=== PATIENT | male | born 1960 | race Caucasian/White ===

== ENCOUNTER 2020-07-11 17:33 | Emergency (ER) | payer MEDICARE, OTHER, SELFPAY ==
--- NOTE | ~2020-07-11 | XR_ITS ---
XR knee RT min 4V DATE: 07/11/2020 18:16 INDICATION: Pain, erythema and warmth of right knee TECHNIQUE: 4 views COMPARISON: None FINDINGS: There is mild loss of height of medial compartment joint space. There is mild periarticular spurring at the patellofemoral joint. No fracture or dislocation, periosteal reaction or bone destruction. No radiopaque intra-articular lo ose body or chondrocalcinosis. IMPRESSION: Mild osteoarthritis of medial and patellofemoral compartments Reviewed, dictated and finalized at location A.
--- NOTE | 2020-07-11 17:35 | ED.GENADULT ---
HPI - General Adult General Chief complaint: Extremity Injury, Lower Stated complaint: Right knee Pain Time Seen by Provider: 07/11/20 17:35 Source: patient Mode of arrival: ambulatory Limitations: no limitations History of Present Illness HPI narrative: 59-year-old male patient presents to [facility] with complaints of right knee pain for the past 4 days. Patient states around Monday this week he was working on his knee and did have some kneepads but he was removing some tile. Patient states that the next day he noticed a little blister on the right knee and states he did pop it. Patient states that it is now red, warm and does have pain with movement of the knee. Denies any fevers, body aches or chills. Related Data Home Medications Medication Instructions Recorded Confirmed Immodium BID 07/11/20 allopurinol 07/11/20 esomeprazole magnesium mg 07/11/20 gabapentin 07/11/20 Allergies Allergy/AdvReac Type Severity Reaction Status Date / Time fluticasone Allergy Unknown Skin Verified 09/29/17 21:20 Reaction salmeterol [Advair Diskus] Allergy Unknown Skin Verified 09/29/17 21:20 Reaction Sulfa (Sulfonamide Allergy Unknown Skin Verified 09/29/17 21:20 Antibiotics) Reaction FLUTICASONE PROPIONATE Allergy Unknown RASH Uncoded 12/28/17 09:07 SALMETEROL XINAFOATE Allergy Unknown RASH Uncoded 12/28/17 09:07 Review of Systems Review of Systems: Narrative: CONSTITUTIONAL: Denies fever, chills, or sweats. EYES: Denies visual changes, redness, or discharge. ENT: Denies rhinorrhea, congestion, sore throat, or otalgia. CARDIOVASCULAR: Denies chest pain, palpitations, or edema. RESPIRATORY: Denies cough or dyspnea. GASTROINTESTINAL: Denies abdominal pain, nausea, vomiting, or diarrhea. GENITOURINARY: Denies dysuria or hematuria. SKIN: Denies rash or itching. MUSCULOSKELETAL: Denies back pain, joint pain, or myalgia. Positive right knee pain NEUROLOGIC: Denies headache, numbness, or weakness. PSYCHIATRIC: Denies anxiety or depression. 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, bilateral knee scopes, bilateral carpal tunnel release, left rotator cuff in 2016 and 2017 Family History Family History Mother Diabetes mellitus Father Acute myocardial infarction, Onset Age: 78 Family history of Alzheimer's disease Sibling Family history of malignant neoplasm Other Family history of arthritis Family history of cardiovascular disease Hypertension Social History Social History Smoking status: Never smoker Second hand tobacco smoke exposure: Yes Alcohol intake: current Comments At the time of my signature I agree with nursing past medical history, surgical, social, and family history. There is no relevant family history pertinent to the presenting complaint. Exam Narrative: Exam Narrative: GENERAL: Well-appearing, well-nourished, and in no acute distress. HEAD: Normocephalic, atraumatic. EYES: PERRLA and EOMI. ENT: Nares clear, no rhinorrhea or epistaxis. Mucous membranes moist. NECK: Supple. No lymphadenopathy CHEST: Clear to auscultation. No respiratory distress. HEART: Regular rate and rhythm. No murmur heard. Normal peripheral pulses. ABDOMEN: Soft, nontender, nondistended, normal active bowel sounds. EXTREMITIES: Patient is able to bear weight and ambulate without pain. No surfac
[2020-07-11 17:47] VITALS: BP 129/89; PULSE 81; RESP 16; TEMP 37.7; O2SAT 98
== END 2020-07-11 18:44 | disposition home or self-care (01) ==
PROVIDERS: Emergency Provider Nurse Practitioner Family; PCP Family Medicine
DX: L03.115 Cellulitis of right lower limb (principal); M19.90 Unspecified osteoarthritis, unspecified site; M48.02 Spinal stenosis, cervical region; K21.9 Gastro-esophageal reflux disease without esophagitis; G47.30 Sleep apnea, unspecified; G62.9 Polyneuropathy, unspecified; E78.00 Pure hypercholesterolemia, unspecified
CPT/HCPCS: 73564; 99213; G0463

== ENCOUNTER 2020-07-12 15:18 | Inpatient (IN) | payer MEDICARE, OTHER, SELFPAY ==
--- NOTE | ~2020-07-12 | US_ITS ---
EXAMINATION: US knee asp inj w image RT DATE: 07/13/2020 12:54 INDICATION: Right knee septic bursitis. TECHNIQUE: The procedure including the risks, benefits, and alternatives was discussed with the patie nt. Risks discussed included bleeding, infection and allergic reaction. The patient understood the ri sks and agreed to proceed. A timeout was performed to verify the patient's name, date of , an d procedure to be performed. The skin overlying the right kidney was prepped and draped in usual solomon rile fashion. Anesthetic was administered with 1% lidocaine subcutaneously. An 18 gauge needle was then advanced into the prepatellar bursal fluid collection under continuous sonographic guidance. 2 m m of fluid was aspirated and sent to the lab for studies as ordered by the referring physician includ ing Gram stain, cultures and crystal analysis. The entry site was cleaned and dressed. There were no immediate complications. FINDINGS: Ultrasound images demonstrate the needle in the 3.3 x 2.2 x 0.6 cm anechoic prepatellar flu id collection consistent with a prepatellar bursa. IMPRESSION: 1. Ultrasound-guided right prepatellar bursa aspiration yielding 2 mm of opaque silvestre purulent appeari ng fluid. Reviewed, dictated and finalized at location A. IMPRESSION: 1. Ultrasound-guided right prepatellar bursa aspiration yielding 2 mm of opaqu e silvestre purulent appearing fluid.
[2020-07-12 15:29] VITALS: BP 144/83; PULSE 102; RESP 20; TEMP 36.6; O2SAT 97
[2020-07-12 15:59] LABS: Basophils Percent Auto 0.1 % (0.2-1.2); Eosinophils Percent Auto 0.1 % (0-4.4); Hematocrit 45.9 % (42.0-52.0); Hemoglobin 15.5 g/dL (14.0-18.0); Immature Granulocyte Absolute 0.05 K/mm3 (0.00-0.031); Immature Granulocyte Percent A 0.3 % (0-0.5); Lymphocytes Absolute Auto 0.92 K/mm3 (0.9-3.2); Lymphocytes Percent Auto 5.8 % (18.3-44.2); Mean Corpuscular HGB Conc 33.8 g/dl (32-36); Mean Corpuscular Hemoglobin 29.8 pg (26-34); Mean Corpuscular Volume 88.3 fl (80-100); Mean Platelet Volume 10.3 fl (7.4-10.4); Monocytes Absolute Auto 1.2 K/mm3 (0.1-0.6); Monocytes Percent Auto 7.5 % (2.6-8.5); Neutrophils Absolute Auto 13.6 K/mm3 (1.3-6.7); Neutrophils Percent Auto 86.2 % (45.5-73.1); Platelet Count Result 147 k/mm3 (150-375); White Blood Count 15.7 K/mm3 (4.5-10.0)
--- NOTE | 2020-07-12 16:10 | PC.NURSE ---
patient to radiology via stretcher.
[2020-07-12 16:14] LABS: Alanine Aminotransferase 10 U/L (4-50); Albumin Level 4.4 g/dL (3.5-5.1); Alkaline Phosphatase 75 U/L (38-126); Anion Gap 10 mmol/L (8-16); Aspartate Amino Transferase 19 U/L (17-59); Bilirubin,Total 1.3 mg/dL (0.2-1.3); Blood Urea Nitrogen 13 mg/dL (9-20); CRP 8.7 mg/dL (<1.0); Calcium 9.7 mg/dL (8.4-10.2); Carbon Dioxide 25 mmol/L (22-30); Chloride 103 mmol/L (98-107); Estimated Glomerular Filt Rate > 60; Glucose 148 mg/dL (75-110); Potassium 3.8 mmol/L (3.4-5.0); Sodium 138 mmol/L (137-145)
[2020-07-12 16:50] LABS: Lactic Acid Reflex 0.8 mmol/L (0.7-2.1)
[2020-07-12] MEDS: KETOROLAC 30 MG/ML VIAL (*BKC) IV PUSH (16:52)
--- NOTE | 2020-07-12 17:24 | ED.LOWEXIN ---
HPI - Extremity Injury (Lower) General Chief Complaint: Extremity Injury, Lower Stated Complaint: R KNEE PAIN Time Seen by Provider: 07/12/20 15:32 Source: patient Mode of arrival: ambulatory Limitations: no limitations History of Present Illness HPI Narrative: This patient is a 59 year old male who presents for evaluation of right knee pain. He states he developed right knee blister on Monday. He reports after popping his blister he developed pain and swelling to his knee. He was evaluated at [facility] yesterday, and he was prescribed keflex. He has been on antibiotics for 24 hours, but he states he has developed worsening pain and swelling. He has pain and worsening swelling to his lower leg. He has severe pain with bearing weight. He denies fever or chills. Related Data Home Medications Medication Instructions Recorded Confirmed Immodium BID 07/11/20 esomeprazole magnesium mg DAILY 07/11/20 gabapentin 600 mg BID 07/11/20 allopurinol DAILY 07/12/20 rosuvastatin 10 mg PO HS 07/12/20 Allergies Allergy/AdvReac Type Severity Reaction Status Date / Time fluticasone Allergy Unknown Skin Verified 07/12/20 15:35 Reaction salmeterol [Advair Diskus] Allergy Unknown Skin Verified 07/12/20 15:35 Reaction Sulfa (Sulfonamide Allergy Unknown Skin Verified 07/12/20 15:35 Antibiotics) Reaction Review of Systems Review of Systems: All systems reviewed & are unremarkable except as noted in HPI and below Constitutional: Constitutional: Denies chills and Denies fever(s) Cardiovascular: Cardiovascular: Denies chest pain Respiratory: Respiratory: Denies cough and Denies dyspnea Gastrointestinal: Gastrointestinal: Reports nausea Musculoskeletal: Musculoskeletal: Reports joint swelling PMFSH Past Medical History Medical History Anxiety Arthritis Asthma Chronic back pain Stenosis of the cervical lumbar areas Depression GERD (gastroesophageal reflux disease) Hypercholesterolemia Kidney stones Musculoskeletal disorder Right Achilles tendon rupture Achilles tendon surgery 2017 Peripheral neuropathy Sleep apnea Surgical History Surgical History History of orthopedic surgery 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, bilateral knee scopes, bilateral carpal tunnel release, left rotator cuff in 2016 and 2017 Family History Family History Mother Diabetes mellitus Father Acute myocardial infarction, Onset Age: 78 Family history of Alzheimer's disease Sibling Family history of malignant neoplasm Other Family history of arthritis Family history of cardiovascular disease Hypertension Social History Social History Smoking status: Never smoker Second hand tobacco smoke exposure: Yes Alcohol intake: current Exam Const: General: no acute distress and alert Orientation/consciousness: patient oriented x3 HENMT: Head: normocephalic and atraumatic Ears: TM's normal bilaterally General nose exam: Normal external nose present Face and sinus: face symmetric Mouth: Yes Normal oral and palatal mucosa present, Yes lip normal, Yes oropharynx normal and Yes moist mucous membranes Teeth and gingiva: dentition normal Eyes: EOM: EOMs intact bilaterally Resp: Effort & Inspection: normal respiratory effort and no retractions Auscultation: clear to auscultation bilaterally Cardio: Rate: regular rate Rhythm: regular rhythm Heart sounds: Murmur heart sound present GI: GI Palp: No Soft to palpation, No Tenderness to palpation present (GI) and No Guarding due to palpation present (GI) Neuro: General: patient oriented x3 and moves all extremities Extrem: Other: right knee with open small wound mid patella with erythema right anterior knee down to mid
--- NOTE | 2020-07-12 17:58 | PC.NURSE ---
resting on stretcher. on BP and O2 monitors. 2nd IV antibiotic infusing. denies needs. planning for admission upstairs.
--- NOTE | 2020-07-12 19:12 | ADMGEN ---
This patient, Almas Chirinos, was admitted to Medical Room 257-01. Patient/family oriented to hospital policies and general routines including ID bracelet, bed and alarms, visiting hours, pain management, procedures, bathroom and other care routines, personal items, smoking policy, room service/diet, and visiting hours. Information on how to activate the Rapid Response Team has been discussed. Patient/Family are encouraged to report perceived risks to care and to ask questions if they do not understand what they are told or what they should do.
[2020-07-12 19:41] VITALS: BP 121/77; PULSE 72; RESP 16; TEMP 36.6; O2SAT 98
[2020-07-12 19:44] VITALS: BMI 28.3
--- NOTE | 2020-07-12 20:00 | PM.IMHP ---
H&P: HPI History of Present Illness Date/Time: 07/12/20 20:00 Chief complaint: Right knee infection. Narrative: Almas Chirinos is a very pleasant 59-year-old male with history of COPD, obstructive sleep apnea, hyperlipidemia, GERD, and peripheral neuropathy secondary to spinal stenosis who presented to the emergency department earlier this afternoon for evaluation of a worsening right knee infection. On Monday he did some demo work at home, tearing up a ceramic tile floor off of concrete, and spent a lot of his time on his knees. Despite wearing knee pads he developed irritation in the right prepatellar region, noting an almost foreign body like sensation. He attempted to manipulate the area however nothing was extracted. The following morning there was a blood blister present which he popped, and thereafter he developed erythema and edema about the site. He was seen at urgent care yesterday and was prescribed Keflex, however this morning he woke to pretty severe burning pain in the right knee with a market increase in erythema and edema, thus he came in for evaluation. He has not had fever chills but does report sweats. His appetite has been a bit decreased but he denies nausea and vomiting. No known history of MRSA. Review of Systems Review of Systems: Narrative: 12 systems were reviewed with pertinent positives and negatives as per HPI. No cold or flu symptoms. He denies sick contacts. His COPD is well controlled. He is compliant with his CPAP at nighttime. He takes diclofenac for generalized aches and pains. He takes these omeprazole for GERD symptoms and is complaining of some gas/indigestion at this time. No exertional chest pain or shortness of breath. Occasional wheezing due to COPD. No history of multidrug resistant organisms. Except as documented, all other systems were reviewed and are negative. [facility] Past Medical History Medical History (Updated 07/12/20 @ 20:58 by Suni Silvestre PA-C) Anxiety Arthritis Asthma Chronic back pain Stenosis of the cervical and lumbar regions. 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 Bilateral knee arthroscopy. Bilateral carpal tunnel release. Left Achilles tendon repair. Right tibialis anterior repair. Left rotator cuff repair. Family History Family History Mother Diabetes mellitus Father Acute myocardial infarction, Onset Age: 78 Family history of Alzheimer's disease Sibling Family history of malignant neoplasm Other Family history of arthritis Family history of cardiovascular disease Hypertension Social History Social History (Updated 07/12/20 @ 20:53 by Suni Silvestre PA-C) Social History: Surrogate decision maker: Lulu Whaley, . Code status: Full code. Smoking packs per day: 1 Smoking cigarettes per day: 20.0 Years smoked: 30 Smoking pack-years: 30.00 Smoking status: Former smoker Second hand tobacco smoke exposure: Yes Smoking end date: 08/18/18 Alcohol intake: current Alcohol use details: Drinks alcohol socially and in moderation. Substance use: never Substance use type: does not use Additional living arrangements comments: Lives with his in [place]. 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 Gender identity (if verbalized by the patient): Male Sexual Orientation (if Verbalized by the Patient): Straight or Heterosexual Spiritual care concerns: No Meds Home Medications and Allergies Home Medications Medication Instructions Recorded Confirmed Type fluoxetine 20 mg capsu
[2020-07-12 21:28] VITALS: BP 121/73; PULSE 80; RESP 16; TEMP 36.4; O2SAT 97
[2020-07-12 23:06] VITALS: PULSE 78; O2SAT 98
[2020-07-13] MEDS: HYDROcodone/acetaminophen (*CRX) 5-325 MG TABLET 1 TAB PO ×3 (05:05→19:04)
[2020-07-13 06:00] VITALS: BP 134/78; PULSE 84; RESP 16; TEMP 36.8; O2SAT 99
[2020-07-13 06:17] LABS: Basophils Percent Auto 0.1 % (0.2-1.2); Eosinophils Absolute Auto 0.1 K/mm3 (0-0.3); Eosinophils Percent Auto 0.4 % (0-4.4); Hematocrit 42.6 % (42.0-52.0); Hemoglobin 14.2 g/dL (14.0-18.0); Immature Granulocyte Absolute 0.05 K/mm3 (0.00-0.031); Immature Granulocyte Percent A 0.4 % (0-0.5); Immature Platelet Fraction Pct 3.6 % (0.9-11.2); Lymphocytes Absolute Auto 0.89 K/mm3 (0.9-3.2); Lymphocytes Percent Auto 7.2 % (18.3-44.2); Mean Corpuscular HGB Conc 33.3 g/dl (32-36); Mean Corpuscular Volume 89.9 fl (80-100); Mean Platelet Volume 10.8 fl (7.4-10.4); Monocytes Percent Auto 7.9 % (2.6-8.5); Neutrophils Absolute Auto 10.4 K/mm3 (1.3-6.7); Platelet Count Result 137 k/mm3 (150-375); Red Blood Count 4.74 M/mm3 (4.6-6.20); Red Cell Distribution Width 12.9 % (11.5-14.5); White Blood Count 12.4 K/mm3 (4.5-10.0)
[2020-07-13 06:42] LABS: Alanine Aminotransferase 8 U/L (4-50); Alkaline Phosphatase 70 U/L (38-126); Anion Gap 8 mmol/L (8-16); Aspartate Amino Transferase 16 U/L (17-59); Bilirubin,Total 0.8 mg/dL (0.2-1.3); Blood Urea Nitrogen 18 mg/dL (9-20); Calcium 8.9 mg/dL (8.4-10.2); Carbon Dioxide 28 mmol/L (22-30); Chloride 102 mmol/L (98-107); Estimated CRCL calculation 94 ml/min; Estimated Glomerular Filt Rate > 60; Glucose 130 mg/dL (75-110); Potassium 3.6 mmol/L (3.4-5.0); Sodium 138 mmol/L (137-145)
[2020-07-13 09:14] LABS: Erythrocyte Sedimentation Rate 27 mm/hr (0-20)
[2020-07-13 09:15] LABS: CRP 17.6 mg/dL (<1.0)
[2020-07-13] MEDS: FLUoxetine HCL 20 MG CAPSULE PO (09:23)
[2020-07-13] MEDS: DICLOFENAC SOD 75 MG TABLET.EC PO ×2 (09:23→16:47)
[2020-07-13] MEDS: allopurinoL 300 MG TABLET PO (09:23)
[2020-07-13] MEDS: GABAPENTIN 300 MG CAPSULE 600 MG PO ×2 (09:23→16:47)
[2020-07-13] MEDS: PANTOPRAZOLE 40 MG TABLET PO (09:24)
--- NOTE | 2020-07-13 10:54 | PM.IMPN ---
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 Shortly after, he noticed erythema, warmth, exquisite tenderness, and difficulty bearing weight. The knee was aspirated in the ED. Knee x-ray showed a mild OA. He had low grade fever of 99.8 at presentation but has remained afebrile since. Leukocytosis is improving. Orthopedic surgery has been consulted and recommendations are appreciated Ultrasound-guided aspiration has been ordered and patient is awaiting. Synovial fluid will be analyzed. Continue vancomycin and Ancef Blood cultures are pending Elevate extremity Analgesics available as needed (2) Obstructive sleep apnea on CPAP: Code(s): G47.33 - Obstructive sleep apnea (adult) (pediatric); Z99.89 - Dependence on other enabling machines and devices Status: Acute Assessment and Plan: Continue CPAP titrated to home settings (3) Gout: Code(s): M10.9 - Gout, unspecified Status: Acute Assessment and Plan: Patient has a history of gout, although exam and lab findings felt to be more consistent with bursitis. Uric acid level was low. Continue allopurinol (4) Gastroesophageal reflux disease: Code(s): K21.9 - Gastro-esophageal reflux disease without esophagitis Status: Inactive Assessment and Plan: Asymptomatic at this time. Continue Protonix (5) Chronic obstructive pulmonary disease: Code(s): J44.9 - Chronic obstructive pulmonary disease, unspecified Status: Acute Assessment and Plan: chronic and stable. He is currently maintaining adequate oxygen saturations on room air. No wheezing or shortness of breath. He does not appear to be on any bronchodilators. Albuterol available as needed (6) Peripheral neuropathy: Code(s): G62.9 - Polyneuropathy, unspecified Status: Inactive Assessment and Plan: Chronic. Unclear etiology. . continue gabapentin Subjective Date/time seen: 07/13/20 10:54 Interval history: Date of service: 07/13/2020 Almas Chirinos is a 59-year-old male with a history of COPD, gout, DAISHA and peripheral neuropathy who is seen in follow up for septic prepatellar bursitis. he reports mild improvement of his pain today. He feels that he has increased his range of motion and he was able to tentatively bear weight to walk to the bathroom. Prior to arrival, he was not able to bear weight whatsoever. He currently reports his pain as 5/10 He feels that the area is still quite warm and tender. He reports feeling cold but denies any subjective fevers or chills. he endorses nausea which he attributes to pain but denies any episodes of vomiting. He reports loose stools which is typical for him. Denies abdominal pain. Denies shortness of breath, cough chest pain, palpitations, dizziness, lightheadedness, numbness, tingling, weakness. Review of Systems Review of Systems: Narrative: 12 systems reviewed with pertinent positives and negatives as per HPI. Exam Narrative: Exam Narrative: Mr. Chirinos isawell-nourished, well-appearing 59-year-old male who is lying semi recumbent in bed. He appears comfortable and is in NARD. HR 84, BP 134/78, RR 16, T 98.2?, 99% on room air Neuro: awake, alert and oriented x4, speech clear, no focal neuro deficits noted HEENMT: normocephalic, atraumatic, EOMI, sclerae anicteric, moist oral mucosa, tongue midline, nares patent Neck: supple, no lymphadenopathy Respiratory: clear to auscultation bilaterally, nonlabored breathing Cardio: regular rate, regular rhythm with S1-S2 Abdomen: protuberant, normoactive bowel sounds,
--- NOTE | 2020-07-13 12:09 | PM.CNOR ---
Assessment and Plan Additional Plan Patient is a 59-year-old gentleman who presented to the emergency room yesterday with on improved prepatellar bursitis right knee. He went to the urgent care 2 days ago. Six days ago he was wearing knee pads removing a tile floor and when he was done he felt leg be perhaps had an ingrown hair follicle as he had some burning over the front of his patella. He had x-rays which showed [id number] medial compartment osteoarthritis in the right knee. He has had arthroscopic surgery on that knee many years ago. He was given a prescription for Keflex. He has history of allergy to sulfa causing skin rash. He did not receive an IV antibiotic when he was in the emergency room. He took 1 dose that night and 1 on yesterday morning and he was advised if he was unimproved go to the emergency room so that is what he did. He states yesterday he had great difficulty bearing weight on the right leg because the pain and burning in the front of his right knee with severe he had a hard time moving it. States he is improving. He was placed on Ancef and vancomycin. ESR today 27 and C-reactive protein 17 which is 17 times normal. His white count yesterday was 14,000 in his white count today is 12,000. He does not have diabetes. He stop smoking 11 months ago. He weighs 84 kg. On exam today there is a 3 mm dark purple pimple spot he states he tried to get some material out of a few days ago and the center of the prepatellar bursa right over the inferior pole of patella and there is erythema focally in that area that extends over to the lateral retinaculum. He did have a trace effusion I thought he had range of motion from 0 to 110? with significant pain anteriorly at this degree of flexion. He had full extension 5/5 muscle strength. He denied any numbness or tingling but states he does have some decreased sensation in his right foot. He has had an allograft reconstruction of a ruptured tibialis anterior tendon on the right and he had an equinus contracture and to address that he had a Achilles tendon lengthening which gave way while he was still in the cast and had have another reconstructive surgery for that. On exam he has no definite Achilles tendon continuity. There is no tenderness there. He has excellent dorsiflexion strength. He has a 2+ dorsalis pedis pulse. There are calf is nontender there is no lower extremity edema or swelling. There is no drainage from this purple furuncle over the inferior pole of patella. I would like to see if we could get a couple of drops of purulent fluid any is present under the skin and culture this. Our antibiotic choices are a little bit tricky due to the fact that he is allergic to sulfa which means we cannot use Bactrim which would be our usual choice if he has MRSA and there is probably a 50 50 chance that he has MRSA versus oxacillin sensitive Staph aureus. We will ask Radiology to aspirate the prepatellar bursa if any fluid collection is seen under ultrasound. If he does indeed have an effusion in the knee would be helpful to aspirate the knee fluid and make sure he does not have early infection there. I think that is less likely but he does appear to have a mild effusion and some limitation range of motion. I think we will consult Dr. Rivera for his opinion. We will add a K-pad to increase antibiotic delivery. History of Present Illness HPI Consult date: 07/13/20 Chief complaint: Right knee infection. [facility] Past Medical History Medical History (Updated 07/12/20 @ 20:58 by Suni Silvestre PA-C) Anxiety Arthritis Asthma Chronic back pain Stenosis of the cervical and lumbar regions. Chronic obstructive pulmonary disease Depression Gastroesophageal reflux disease Gout Hypercholesterolemia Kidney stones Obstructive sleep apnea on CPAP Peripheral neuropathy Vitiligo Surgical History Surgical History (Updated 07/12/20 @ 20:52 by Suni Silvestre PA-C) History of orthope
[2020-07-13] MEDS: LOPERAMIDE HCL 2 MG CAPSULE PO ×2 (12:12→16:47)
[2020-07-13 14:00] VITALS: BP 115/74; PULSE 84; RESP 16; TEMP 36.6; O2SAT 97
[2020-07-13 14:27] LABS: Color Synovial Fluid Brown (Colorless); Source Synovial Fluid Synovial fluid
[2020-07-13 14:28] LABS: Appearance Synovial Fluid Cloudy (Clear); Monocytes Synovial Fluid 1 %; Neutrophils Synovial Fluid 99 % (0-25); Nucleated Cell Synovial Fluid 66533 /uL (0-200)
[2020-07-13 14:29] LABS: Crystals Synovial Fluid None Seen (None Seen)
[2020-07-13 20:00] VITALS: BP 122/69; PULSE 89; RESP 20; TEMP 37.3; O2SAT 97
[2020-07-13] MEDS: ROSUVASTATIN 10 MG TABLET PO (20:26)
--- NOTE | 2020-07-13 20:44 | WPDCN ---
Assessment and Plan Assessment and plan (1) Septic prepatellar bursitis of right knee: Code(s): M71.161 - Other infective bursitis, right knee Status: Acute Assessment and Plan: Septic arthritis versus bursitis. Differential diagnosis include staphylococcal infection including MSSA versus MRSA. Other differential diagnosis include gram-negative less likely. Noninfectious arthritis including gout should be in the differential diagnosis. Status post joint aspiration. WBC count is at 66,000. 90% neutrophils. Patient is empirically on Ancef and vancomycin. Will switch Ancef to Rocephin. (2) Chronic obstructive pulmonary disease: Code(s): J44.9 - Chronic obstructive pulmonary disease, unspecified Status: Acute Assessment and Plan: Chronic obstructive pulmonary disease with sleep apnea. Patient is currently not short of breath. Continue CPAP at bedtime. HPI Data of Consult Date/Time: 07/13/20 20:44 Requesting Physician: Joan Mello PA-C Primary Care Provider: Ramo Avina MD Consult Narrative Narrative: Almas Chirinos is a 59 year old male With history of COPD, vitiligo, peripheral neuropathy, spinal stenosis and obstructive sleep apnea, presented to the emergency room with right knee pain has been going for several days. The patient noted a small blister formation under the skin and popped it draining bloody fluid. This subsequently transition into diffuse erythema of the whole knee associated with significant pain. Patient had episodes of chills and sweats. But no documented fever. Denies any nausea or vomiting but admits to having loss of appetite since this incident. Review of Systems Review of Systems: All systems reviewed & are unremarkable except as noted in HPI and below Constitutional: Constitutional: Reports no additional constitutional complaints Eyes: Eyes: Reports no additional eye complaints ENT: Reports Normal hearing present Cardiovascular: Cardiovascular: Reports no additional cardiovascular complaints Respiratory: Respiratory: Reports no additional respiratory complaints Gastrointestinal: Gastrointestinal: Reports no additional gastrointestinal complaints Genitourinary: Genitourinary: Reports no additional male genitourinary complaints Musculoskeletal: Comments: Left knee swelling and induration times several days. Associated with pain. Range of motion was limited. Integumentary/Breasts: Skin/Breast: Reports swelling Comments: erythema and swelling of the right knee area for several days associated with warmth. Small induration which was drained. Neurologic: Reports system reviewed and no additional complaints, except as documented Psychiatric: Psychiatric: Reports no additional psychiatric complaints Endocrine: Endocrine: Reports no additional endocrine complaints Hematologic/Lymphatic: Hematologic/Lymphatic: Reports no additional hematologic/lymphatic complaints Allergic/Immunologic: Allergic/Immunologic: Reports no additional allergic/immunologic complaints FOR[facility]LY [facility] Past Medical History Medical History Anxiety Arthritis Asthma Chronic back pain Stenosis of the cervical and lumbar regions. 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 Bilateral knee arthroscopy. Bilateral carpal tunnel release. Left Achilles tendon repair. Right tibialis anterior repair. Left rotator cuff repair. Family History Family History Mother Diabetes mellitus Father Acute myocardial infarction, Onset Age: 78 Family history of
--- NOTE | 2020-07-13 21:04 | WPDCN ---
HPI Data of Consult Date/Time: 07/13/20 21:04 Requesting Physician: Joan Mello PA-C Primary Care Provider: Ramo Avina MD Consult Narrative Narrative: Almas Chirinos is a 59 year old male [facility] Past Medical History Medical History (Updated 07/13/20 @ 21:01 by Spencer Hernández MD) Anxiety Arthritis Asthma Chronic back pain Stenosis of the cervical and lumbar regions. Chronic obstructive pulmonary disease history of COPD with sleep apnea. Patient uses CPAP machine. Continue CPAP. 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 Bilateral knee arthroscopy. Bilateral carpal tunnel release. Left Achilles tendon repair. Right tibialis anterior repair. Left rotator cuff repair. Family History Family History Mother Diabetes mellitus Father Acute myocardial infarction, Onset Age: 78 Family history of Alzheimer's disease Sibling Family history of malignant neoplasm Other Family history of arthritis Family history of cardiovascular disease Hypertension Social History Social History Social History: Surrogate decision maker: Lulu Whaley, . Code status: Full code. Smoking packs per day: 1 Smoking cigarettes per day: 20.0 Years smoked: 30 Smoking pack-years: 30.00 Smoking status: Former smoker Second hand tobacco smoke exposure: Yes Smoking end date: 08/18/18 Alcohol intake: current Alcohol use details: Drinks alcohol socially and in moderation. Substance use: never Substance use type: does not use Additional living arrangements comments: Lives with his in [place]. 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 Gender identity (if verbalized by the patient): Male Sexual Orientation (if Verbalized by the Patient): Straight or Heterosexual Spiritual care concerns: No Meds Home Medications and Allergies Home Medications Medication Instructions Recorded Confirmed Type fluoxetine 20 mg capsule 20 mg PO DAILY #90 cap 10/28/19 07/12/20 Rx diclofenac sodium 75 mg 75 mg PO BID #180 tablet 05/05/20 07/12/20 Rx tablet,delayed release Immodium 1 cap PO BID 07/11/20 07/12/20 History cephalexin 500 mg PO Q12H 7 Days #14 cap 07/11/20 07/12/20 Rx esomeprazole magnesium 40 mg PO DAILY 07/11/20 07/12/20 History gabapentin 600 mg PO BID 07/11/20 07/12/20 History allopurinol 300 mg PO DAILY 07/12/20 07/12/20 History rosuvastatin 10 mg PO HS 07/12/20 07/12/20 History Allergies Allergy/AdvReac Type Severity Reaction Status Date / Time fluticasone Allergy Unknown Skin Verified 07/12/20 15:35 Reaction salmeterol [Advair Diskus] Allergy Unknown Skin Verified 07/12/20 15:35 Reaction Sulfa (Sulfonamide Allergy Unknown Skin Verified 07/12/20 15:35 Antibiotics) Reaction Vital Signs Vital Signs - 24 hr 07/12/20 21:28 07/12/20 23:06 07/13/20 06:00 Temperature 36.4 C L 36.8 C Pulse Rate 80 78 84 Respiratory Rate 16 16 Blood Pressure 121/73 134/78 Pulse Oximetry 97 98 99 07/13/20 14:00 07/13/20 20:00 Temperature 36.6 C 37.3 C Pulse Rate 84 89 Respiratory Rate 16 20 Blood Pressure 115/74 122/69 Pulse Oximetry 97 97 Results Labs CBC & Chem 7: 07/13/20 05:43 07/13/20 05:43 Labs: Short CBC 07/13/20 Range/Units 05:43 WBC 12.4 H (4.5-10.0) K/mm3 Hgb 14.2 (14.0-18.0) g/dL Hct 42.6 (42.0-52.0) % Plt Count 137 L (150-375) k/mm3 BMP 07/13/20 05:43 Sodium 138 Potassium 3.6 Chloride 102 Carbon Dioxide 28 BUN 18 Creatinine 0.70 Glucose
[2020-07-13 21:47] LABS: Uric Acid 2.7 mg/dL (3.5-8.5)
[2020-07-13 22:13] VITALS: PULSE 73; O2SAT 98
[2020-07-14 02:39] VITALS: PULSE 75; O2SAT 98
[2020-07-14 04:00] VITALS: BP 118/76; PULSE 80; RESP 20; TEMP 36.9; O2SAT 97
[2020-07-14 05:17] LABS: Basophils Percent Auto 0.2 % (0.2-1.2); Eosinophils Absolute Auto 0.2 K/mm3 (0-0.3); Eosinophils Percent Auto 1.6 % (0-4.4); Hematocrit 41.2 % (42.0-52.0); Hemoglobin 13.9 g/dL (14.0-18.0); Immature Granulocyte Absolute 0.04 K/mm3 (0.00-0.031); Immature Granulocyte Percent A 0.4 % (0-0.5); Immature Platelet Fraction Pct 3.9 % (0.9-11.2); Lymphocytes Absolute Auto 1.13 K/mm3 (0.9-3.2); Lymphocytes Percent Auto 11.9 % (18.3-44.2); Mean Corpuscular HGB Conc 33.7 g/dl (32-36); Mean Corpuscular Hemoglobin 29.5 pg (26-34); Mean Corpuscular Volume 87.5 fl (80-100); Mean Platelet Volume 10.6 fl (7.4-10.4); Monocytes Absolute Auto 0.9 K/mm3 (0.1-0.6); Monocytes Percent Auto 9.4 % (2.6-8.5); Neutrophils Absolute Auto 7.3 K/mm3 (1.3-6.7); Neutrophils Percent Auto 76.5 % (45.5-73.1); Platelet Count Result 123 k/mm3 (150-375); Red Blood Count 4.71 M/mm3 (4.6-6.20); Red Cell Distribution Width 12.8 % (11.5-14.5); White Blood Count 9.5 K/mm3 (4.5-10.0)
[2020-07-14 05:24] LABS: Alanine Aminotransferase 11 U/L (4-50); Albumin Level 3.7 g/dL (3.5-5.1); Alkaline Phosphatase 63 U/L (38-126); Anion Gap 6 mmol/L (8-16); Aspartate Amino Transferase 23 U/L (17-59); Bilirubin,Total 0.5 mg/dL (0.2-1.3); Blood Urea Nitrogen 19 mg/dL (9-20); Calcium 8.7 mg/dL (8.4-10.2); Carbon Dioxide 28 mmol/L (22-30); Chloride 105 mmol/L (98-107); Estimated CRCL calculation 94 ml/min; Estimated Glomerular Filt Rate > 60; Glucose 114 mg/dL (75-110); Potassium 3.9 mmol/L (3.4-5.0); Sodium 139 mmol/L (137-145)
[2020-07-14 06:09] LABS: Vancomycin Trough 7.7 ug/mL (10.0-20.0)
--- NOTE | 2020-07-14 06:40 | PM.PNORT ---
Progress Note: A&P Additional Plan right prepatellar bursa was aspirated yesterday and they were able to get 2cc of turbid fluid out which would be consistant with infection. We will wait for cx results, pt is on abx at this time. pain is tolerable, should be able to treat this without surg. with abx only. will check on lab results later <RENETTA Sung - Last Filed: 07/14/20 06:44> Subjective Subjective Date/Time Seen: 07/14/20 06:40 <RENETTA Sung - Last Filed: 07/14/20 06:44> Objective Data Vital Signs Vital Signs: Vital Signs - 24 hr 07/13/20 14:00 07/13/20 20:00 07/13/20 22:13 Temperature 36.6 C 37.3 C Pulse Rate 84 89 73 Respiratory Rate 16 20 Blood Pressure 115/74 122/69 Pulse Oximetry 97 97 98 07/14/20 02:39 07/14/20 04:00 Temperature 36.9 C Pulse Rate 75 80 Respiratory Rate 20 Blood Pressure 118/76 Pulse Oximetry 98 97 <RENETTA Sung - Last Filed: 07/14/20 06:44> Intake/Output Intake/Output: Intake & Output 07/11/20 07/12/20 07/13/20 07/14/20 23:59 23:59 23:59 23:59 Intake Total 300 2500 180 Output Total 1227 Balance 300 1273 180 <RENETTA Sung - Last Filed: 07/14/20 06:44> Meds/Results Medications: Active Medications Generic Name Dose Route Start Last Admin Trade Name Freq PRN Reason Stop Dose Admin Hydrocodone Bitart/Acetaminophen 1 tab 07/12/20 17:45 07/13/20 19:04 Hydrocodone/Acetaminophen (*Crx) 5-325 Mg Tablet PO 1 tab Q4H PRN Administration Pain Rated 4-6 Allopurinol 300 mg 07/13/20 09:00 07/13/20 09:23 Allopurinol 300 Mg Tablet PO 300 mg DAILY CHUY Administration Diclofenac Sodium 75 mg 07/13/20 09:00 07/13/20 16:47 Diclofenac Sod 75 Mg Tablet.Ec PO 75 mg BID CHUY Administration Fluoxetine HCl 20 mg 07/13/20 09:00 07/13/20 09:23 Fluoxetine Hcl 20 Mg Capsule PO 20 mg DAILY CHUY Administration Gabapentin 600 mg 07/13/20 09:00 07/13/20 16:47 Gabapentin 300 Mg Capsule PO 600 mg BID CHUY Administration Ceftriaxone Sodium 2 gm in 100 mls @ 200 mls/hr 07/13/20 21:00 07/13/20 22:39 Rocephin 2 Gm/D5w 100 Ml IVPB Infused Q24H CHUY Infusion Vancomycin HCl 1,500 mg in 500 mls @ 333.333 mls/hr 07/14/20 18:00 Vancomycin 1,500 Mg/D5w 500 Ml IVPB Q12H CHUY Loperamide HCl 2 mg 07/13/20 11:00 07/13/20 16:47 Loperamide Hcl 2 Mg Capsule PO 2 mg BID CHUY Administration Ondansetron HCl 4 mg 07/12/20 17:45 Ondansetron Inj 4 Mg/2 Ml Vial IV PUSH Q4H PRN Nausea Pantoprazole Sodium 40 mg 07/13/20 09:00 07/13/20 09:24 Pantoprazole 40 Mg Tablet PO 40 mg QAM CHUY Administration Rosuvastatin Calcium 10 mg 07/13/20 21:00 07/13/20 20:26 Rosuvastatin 10 Mg Tablet PO 10 mg HS CHUY Administration <RENETTA Sung - Last Filed: 07/14/20 06:44> Radiology Results: ITS Impressions Joint Aspiration/Injection 07/13/20 12:56 IMPRESSION: 1. Ultrasound-guided right prepatellar bursa aspiration yielding 2 mm of opaque silvestre purulent appearing fluid. <RENETTA Sung - Last Filed: 07/14/20 06:44> Labs Labs: Laboratory Results - last 24 hr 07/13/20 07/13/20 07/13/20 05:43 08:38 08:38 WBC RBC Hgb Hct MCV MCH MCHC RDW Plt Count MPV Immature Gran % (Auto) Neut % (Auto) Lymph % (Auto) [place] % (Auto) Eos % (Auto) Baso % (Auto) Lymph # (Auto) [place] # (Auto) Eos # (Auto) Baso # (Auto) Abs Immat Gran (auto) Absolute Neuts (auto) Absolute Nucleated RBC Nucleated RBC % % Immature Plt Fraction ESR 27 H Sodium 138 Potassium 3.6 Chloride 102 Carbon Dioxide 28 Anion Gap 8 BUN 18 Creatinine 0.70 Estim Creat Clear Calc 94 Estimated GFR > 60 Glucose 130 H Uric Acid 3.0 L Calcium 8.9 Total Bilirubin 0.8 AST 16 L ALT 8 Alkaline Phosphatase 70 C-Reactive Prot
[2020-07-14] MEDS: allopurinoL 300 MG TABLET PO (08:49)
[2020-07-14] MEDS: PANTOPRAZOLE 40 MG TABLET PO (08:50)
[2020-07-14] MEDS: GABAPENTIN 300 MG CAPSULE 600 MG PO ×2 (08:50→18:05)
[2020-07-14] MEDS: LOPERAMIDE HCL 2 MG CAPSULE PO ×2 (08:50→18:05)
[2020-07-14] MEDS: DICLOFENAC SOD 75 MG TABLET.EC PO ×2 (08:50→18:05)
[2020-07-14] MEDS: FLUoxetine HCL 20 MG CAPSULE PO (08:50)
[2020-07-14] MEDS: HYDROcodone/acetaminophen (*CRX) 5-325 MG TABLET 1 TAB PO ×3 (08:50→20:33)
--- NOTE | 2020-07-14 09:13 | PM.IMPN ---
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 Shortly after, he noticed erythema, warmth, exquisite tenderness, and difficulty bearing weight. The knee was aspirated in the ED. Knee x-ray showed a mild OA. He had low grade fever of 99.8 at presentation but has remained afebrile since. Leukocytosis is improving. Orthopedic surgery and infectious disease are following and input is greatly appreciated. He underwent ultrasound-guided joint aspiration by IR yesterday with 2mm of opaque, silvestre purulent fluid aspirated, consistent with infection. The fluid was sent for gram stain, cultures, and crystal analysis. Infectious disease recommended IV vancomycin and IV ceftriaxone which will be continued while awaiting culture results which are pending. Preliminary right knee aspirate anaerobic culture shows WBCs and no organisms. Blood cultures reveal NGTD. Continue supportive care with RLE elevation, heat, and analgesics as needed. Await final cultures. Hemoglobin A1c was ordered and pending. (2) Obstructive sleep apnea on CPAP: Code(s): G47.33 - Obstructive sleep apnea (adult) (pediatric); Z99.89 - Dependence on other enabling machines and devices Status: Acute Assessment and Plan: Continue CPAP titrated to home settings (3) Gout: Code(s): M10.9 - Gout, unspecified Status: Acute Assessment and Plan: Patient has a history of gout, although exam and lab findings felt to be more consistent with bursitis. Uric acid level was low. Continue allopurinol. (4) Gastroesophageal reflux disease: Code(s): K21.9 - Gastro-esophageal reflux disease without esophagitis Status: Inactive Assessment and Plan: He reports intermittent heartburn which is worse at night. Continue Protonix (5) Chronic obstructive pulmonary disease: Code(s): J44.9 - Chronic obstructive pulmonary disease, unspecified Status: Acute Assessment and Plan: Chronic and stable. He is not in acute exacerbation and remains on room air. Continue albuterol as needed. (6) Peripheral neuropathy: Code(s): G62.9 - Polyneuropathy, unspecified Status: Inactive Assessment and Plan: Chronic. Unclear etiology. Continue gabapentin. Subjective Date/time seen: 07/14/20 09:13 Mr. Chirinos is a 59 y.o. male with a history of COPD, gout, DAISHA and peripheral neuropathy who is seen in follow up for septic prepatellar bursitis. He reports that he does feel somewhat better but he is still having discomfort in the right knee with burning and aching intermittently. He is bearing weight to the RLE to ambulate to the bathroom and his range of motion has improved. He reports purple discoloration and swelling with ambulation following joint aspiration. He denies fever and chills. He notes occasional nausea due to pain. He reports that his stools are generally loose but he has not had a bowel movement at the hospital yet because he did not eat much prior to arrival given his acute condition and lack of appetite. Appetite has improved. He reports occasional bloating discomfort and heartburn due to his GERD. He denies chest pain, shortness of breath, vomiting, and abdominal pain. He reports occasional headaches and denies dizziness and lightheadedness. Review of Systems Review of Systems: All systems reviewed & are unremarkable except as noted in HPI and below Exam Narrative: Exam Narrative: General: Very pleasant, well-developed, well-nourished, and cooperative 59 y.o. male who is lying semi-recumbent in bed in no acute distress. HEENT: Normocephalic and atraumatic. Conjunctivae wit
[2020-07-14 13:18] VITALS: BP 113/73; PULSE 76; RESP 16; TEMP 36.1; O2SAT 97
[2020-07-14 19:16] LABS: Hematocrit 40.6 % (42.0-52.0); Hemoglobin 13.4 g/dL (14.0-18.0); Mean Platelet Volume 10.7 fl (7.4-10.4); Platelet Count Result 146 k/mm3 (150-375); Red Blood Count 4.46 M/mm3 (4.6-6.20); Red Cell Distribution Width 12.9 % (11.5-14.5)
[2020-07-14 19:28] LABS: Hemoglobin A1C 5.3 % (<5.7)
[2020-07-14 20:17] VITALS: BP 120/64; PULSE 83; RESP 16; TEMP 37.1; O2SAT 97
[2020-07-14] MEDS: ROSUVASTATIN 10 MG TABLET PO (20:17)
[2020-07-14 23:56] VITALS: PULSE 77; O2SAT 98
[2020-07-15 02:40] VITALS: PULSE 78; O2SAT 97
[2020-07-15 06:00] VITALS: BP 121/78; PULSE 77; RESP 16; TEMP 36.6; O2SAT 98
[2020-07-15 06:22] LABS: Basophils Percent Auto 0.4 % (0.2-1.2); Eosinophils Absolute Auto 0.2 K/mm3 (0-0.3); Hematocrit 40.7 % (42.0-52.0); Hemoglobin 13.4 g/dL (14.0-18.0); Immature Granulocyte Absolute 0.03 K/mm3 (0.00-0.031); Immature Granulocyte Percent A 0.4 % (0-0.5); Lymphocytes Absolute Auto 1.37 K/mm3 (0.9-3.2); Lymphocytes Percent Auto 19.7 % (18.3-44.2); Mean Corpuscular HGB Conc 32.9 g/dl (32-36); Mean Corpuscular Hemoglobin 29.8 pg (26-34); Mean Corpuscular Volume 90.6 fl (80-100); Mean Platelet Volume 10.5 fl (7.4-10.4); Monocytes Absolute Auto 0.6 K/mm3 (0.1-0.6); Monocytes Percent Auto 8.6 % (2.6-8.5); Neutrophils Absolute Auto 4.7 K/mm3 (1.3-6.7); Neutrophils Percent Auto 67.9 % (45.5-73.1); Platelet Count Result 146 k/mm3 (150-375); Red Blood Count 4.49 M/mm3 (4.6-6.20); Red Cell Distribution Width 12.8 % (11.5-14.5)
[2020-07-15 06:27] LABS: Potassium 3.9 mmol/L (3.4-5.0)
[2020-07-15 06:41] LABS: Anion Gap 4 mmol/L (8-16); Blood Urea Nitrogen 16 mg/dL (9-20); Calcium 8.7 mg/dL (8.4-10.2); Carbon Dioxide 31 mmol/L (22-30); Chloride 106 mmol/L (98-107); Estimated CRCL calculation 94 ml/min; Estimated Glomerular Filt Rate > 60; Glucose 111 mg/dL (75-110); Sodium 141 mmol/L (137-145)
--- NOTE | 2020-07-15 07:40 | PM.PNORT ---
Progress Note: A&P Additional Plan cx results show light growth of staph.awaiting sensitivity , knee looks better this am, small area on anterior knee that I opened, very superfical , pain is now min. nontender over bursal area, redness is almost gone. <RENETTA Sung - Last Filed: 07/15/20 07:42> Subjective Subjective Date/Time Seen: 07/15/20 07:40 <RENETTA Sung - Last Filed: 07/15/20 07:42> Objective Data Vital Signs Vital Signs: Vital Signs - 24 hr 07/14/20 13:18 07/14/20 20:17 07/14/20 23:56 Temperature 36.1 C L 37.1 C Pulse Rate 76 83 77 Respiratory Rate 16 16 Blood Pressure 113/73 120/64 Pulse Oximetry 97 97 98 07/15/20 02:40 07/15/20 06:00 Temperature 36.6 C Pulse Rate 78 77 Respiratory Rate 16 Blood Pressure 121/78 Pulse Oximetry 97 98 <RENETTA Sung - Last Filed: 07/15/20 07:42> Intake/Output Intake/Output: Intake & Output 07/12/20 07/13/20 07/14/20 07/15/20 23:59 23:59 23:59 23:59 Intake Total 300 2500 2750 500 Output Total 1227 Balance 300 1273 2750 500 <RENETTA Sung - Last Filed: 07/15/20 07:42> Meds/Results Medications: Active Medications Generic Name Dose Route Start Last Admin Trade Name Freq PRN Reason Stop Dose Admin Hydrocodone Bitart/Acetaminophen 1 tab 07/12/20 17:45 07/14/20 20:33 Hydrocodone/Acetaminophen (*Crx) 5-325 Mg Tablet PO 1 tab Q4H PRN Administration Pain Rated 4-6 Allopurinol 300 mg 07/13/20 09:00 07/14/20 08:49 Allopurinol 300 Mg Tablet PO 300 mg DAILY CHUY Administration Diclofenac Sodium 75 mg 07/13/20 09:00 07/14/20 18:05 Diclofenac Sod 75 Mg Tablet.Ec PO 75 mg BID CHUY Administration Fluoxetine HCl 20 mg 07/13/20 09:00 07/14/20 08:50 Fluoxetine Hcl 20 Mg Capsule PO 20 mg DAILY CHUY Administration Gabapentin 600 mg 07/13/20 09:00 07/14/20 18:05 Gabapentin 300 Mg Capsule PO 600 mg BID CHUY Administration Ceftriaxone Sodium 2 gm in 100 mls @ 200 mls/hr 07/13/20 21:00 07/14/20 20:47 Rocephin 2 Gm/D5w 100 Ml IVPB Infused Q24H CHUY Infusion Vancomycin HCl 1,500 mg in 500 mls @ 333.333 mls/hr 07/14/20 18:00 07/15/20 05:48 Vancomycin 1,500 Mg/D5w 500 Ml IVPB 333.33 mls/hr Q12H CHUY Administration Loperamide HCl 2 mg 07/13/20 11:00 07/14/20 18:05 Loperamide Hcl 2 Mg Capsule PO 2 mg BID CHUY Administration Ondansetron HCl 4 mg 07/12/20 17:45 Ondansetron Inj 4 Mg/2 Ml Vial IV PUSH Q4H PRN Nausea Pantoprazole Sodium 40 mg 07/13/20 09:00 07/14/20 08:50 Pantoprazole 40 Mg Tablet PO 40 mg QAM CHUY Administration Rosuvastatin Calcium 10 mg 07/13/20 21:00 07/14/20 20:17 Rosuvastatin 10 Mg Tablet PO 10 mg HS CHUY Administration <RENETTA Sung - Last Filed: 07/15/20 07:42> Radiology Results: ITS Impressions Joint Aspiration/Injection 07/13/20 12:56 IMPRESSION: 1. Ultrasound-guided right prepatellar bursa aspiration yielding 2 mm of opaque silvestre purulent appearing fluid. <RENETTA Sung - Last Filed: 07/15/20 07:42> Labs Labs: Laboratory Results - last 24 hr 07/14/20 07/14/20 07/15/20 18:48 18:48 05:56 WBC 8.0 7.0 RBC 4.46 L 4.49 L Hgb 13.4 L 13.4 L Hct 40.6 L 40.7 L MCV 91.0 90.6 MCH 30.0 29.8 MCHC 33.0 32.9 RDW 12.9 12.8 Plt Count 146 L 146 L MPV 10.7 H 10.5 H Immature Gran % (Auto) 0.4 Neut % (Auto) 67.9 Lymph % (Auto) 19.7 [place] % (Auto) 8.6 H Eos % (Auto) 3.0 Baso % (Auto) 0.4 Lymph # (Auto) 1.37 [place] # (Auto) 0.6 Eos # (Auto) 0.2 Baso # (Auto) 0.0 Abs Immat Gran (auto) 0.03 Absolute Neuts (auto) 4.7 Absolute Nucleated RBC 0.0 Nucleated RBC % 0.0 Sodium Potassium Chloride Carbon Dioxide Anion Gap BUN Creatinine Estim Creat Clear Calc Estimated GFR Glucose Hemoglobin A1c 5.3 Calcium 07/15/20 05:56 WB
[2020-07-15] MEDS: LOPERAMIDE HCL 2 MG CAPSULE PO ×2 (08:08→16:43)
[2020-07-15] MEDS: GABAPENTIN 300 MG CAPSULE 600 MG PO ×2 (08:08→16:43)
[2020-07-15] MEDS: allopurinoL 300 MG TABLET PO (08:08)
[2020-07-15] MEDS: PANTOPRAZOLE 40 MG TABLET PO (08:08)
[2020-07-15] MEDS: DICLOFENAC SOD 75 MG TABLET.EC PO ×2 (08:08→16:43)
[2020-07-15] MEDS: FLUoxetine HCL 20 MG CAPSULE PO (08:08)
[2020-07-15] MEDS: HYDROcodone/acetaminophen (*CRX) 5-325 MG TABLET 1 TAB PO ×3 (08:08→17:09)
--- NOTE | 2020-07-15 08:42 | PM.IMPN ---
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 Shortly after, he noticed erythema, warmth, exquisite tenderness, and difficulty bearing weight. The knee was aspirated in the ED. Knee x-ray showed a mild OA. He had low grade fever of 99.8 at presentation but has remained afebrile since. Leukocytosis is improving. Orthopedic surgery and infectious disease are following and input is greatly appreciated. He underwent ultrasound-guided joint aspiration by IR 07/13 with 2mm of opaque, silvestre purulent fluid aspirated, consistent with infection. The fluid was sent for gram stain, cultures, and crystal analysis. Infectious disease recommended IV vancomycin and IV ceftriaxone which will be continued while awaiting culture results which are pending. Preliminary right knee aspirate anaerobic culture shows WBCs and no organisms and preliminary aerobic culture demonstrates staph aureus with sensitivities pending. Blood cultures reveal NGTD. Continue supportive care with RLE elevation, heat, and analgesics as needed. Await final cultures and infectious disease input regarding recommended antibiotic therapy. Hemoglobin A1c was 5.3%. He had a small developing pustule which was opened by orthopedic surgery. (2) Obstructive sleep apnea on CPAP: Code(s): G47.33 - Obstructive sleep apnea (adult) (pediatric); Z99.89 - Dependence on other enabling machines and devices Status: Acute Assessment and Plan: Continue CPAP titrated to home settings. (3) Gout: Code(s): M10.9 - Gout, unspecified Status: Acute Assessment and Plan: Patient has a history of gout, although exam and lab findings felt to be more consistent with bursitis. Uric acid level was low. Continue allopurinol. (4) Gastroesophageal reflux disease: Code(s): K21.9 - Gastro-esophageal reflux disease without esophagitis Status: Inactive Assessment and Plan: He reports intermittent heartburn which is worse at night. Continue protonix. (5) Chronic obstructive pulmonary disease: Code(s): J44.9 - Chronic obstructive pulmonary disease, unspecified Status: Acute Assessment and Plan: Chronic and stable. He is not in acute exacerbation and remains on room air. Continue albuterol as needed. (6) Peripheral neuropathy: Code(s): G62.9 - Polyneuropathy, unspecified Status: Inactive Assessment and Plan: Chronic. Unclear etiology. Continue gabapentin. Subjective Date/time seen: 07/15/20 08:42 Mr. Chirinos is a 59 y.o. male with a history of COPD, gout, DAISHA and peripheral neuropathy who is seen in follow up for septic prepatellar bursitis. He reports improved range of motion. He still has RLE pain 4/10. He had a superficial pustule which was opened by orthopedic surgery. He has not been up to walk yet today but was doing well from that standpoint yesterday. He denies subjective fever and chills. He denies nausea, vomiting, and abdominal pain. He had a regular bowel movement yesterday. His appetite is good. He has no other concerns. Review of Systems Review of Systems: All systems reviewed & are unremarkable except as noted in HPI and below Exam Narrative: Exam Narrative: General: Very pleasant, well-developed, well-nourished, and cooperative 59 y.o. male who is lying semi-recumbent in bed in no acute distress. HEENT: Normocephalic and atraumatic. EOMI. Corrective lenses in place. Oral mucosa moist. Neck: Supple. Cardiac: Regular rate and rhythm. S1 and S2 normal. Lungs: Lungs are clear to auscultation bilaterally. Abdomen: Normoactive bowel sounds. Abdomen is protuberant,
[2020-07-15 14:00] VITALS: BP 104/61; PULSE 73; RESP 14; TEMP 36.4; O2SAT 98
--- NOTE | 2020-07-15 15:12 | WPDINFPN2 ---
Progress Note: A&P Assessment and Plan (1) Septic prepatellar bursitis of right knee: Code(s): M71.161 - Other infective bursitis, right knee Status: Acute Assessment and Plan: 1. S aureus septic bursitis, right knee. Recovering. No arthritis clinically. Etiology = skin trauma 2. Sulfa allergy REC Switch back to more narrow spectrum Ancef. Continue Vanc. Antibiotic # 4. Once susceptibility back, stop the unnecessary antibiotic. Anticipate IV antibiotics at least 2 days more. If MRSA isolated, will need home IV, but if KELLY is found then no IV after discharge. Subjective Date/time seen: 07/15/20 15:12 Interval history: pain in knee under control. No n/v no anorexia Exam Narrative: Exam Narrative: afebrile Const: General: no acute distress Resp: Effort & Inspection: normal respiratory effort Auscultation: clear to auscultation bilaterally Cardio: Rate: regular rate Rhythm: regular rhythm Heart sounds: no gallops and no murmurs GI: Inspection: non-distended GI Palp: Yes Soft to palpation and No Tenderness to palpation present (GI) Skin: General skin exam: normal color and no rashes or lesions noted Extrem: Other: r knee no effusion. no warmth no tenderness, + crusted wound anteriorly Objective Data Vital Signs Vital Signs: Vital Signs - 24 hr 07/14/20 20:17 07/14/20 23:56 07/15/20 02:40 Temperature 37.1 C Pulse Rate 83 77 78 Respiratory Rate 16 Blood Pressure 120/64 Pulse Oximetry 97 98 97 07/15/20 06:00 07/15/20 14:00 Temperature 36.6 C 36.4 C Pulse Rate 77 73 Respiratory Rate 16 14 Blood Pressure 121/78 104/61 Pulse Oximetry 98 98 Intake/Output Intake/Output: Intake & Output 07/12/20 07/13/20 07/14/20 07/15/20 23:59 23:59 23:59 23:59 Intake Total 300 2500 2750 1720 Output Total 1227 400 Balance 300 1273 2750 1320 Meds/Results Medications: Active Medications Generic Name Dose Route Start Last Admin Trade Name Freq PRN Reason Stop Dose Admin Hydrocodone Bitart/Acetaminophen 1 tab 07/12/20 17:45 07/15/20 13:12 Hydrocodone/Acetaminophen (*Crx) 5-325 Mg Tablet PO 1 tab Q4H PRN Administration Pain Rated 4-6 Allopurinol 300 mg 07/13/20 09:00 07/15/20 08:08 Allopurinol 300 Mg Tablet PO 300 mg DAILY CHUY Administration Diclofenac Sodium 75 mg 07/13/20 09:00 07/15/20 08:08 Diclofenac Sod 75 Mg Tablet.Ec PO 75 mg BID CHUY Administration Fluoxetine HCl 20 mg 07/13/20 09:00 07/15/20 08:08 Fluoxetine Hcl 20 Mg Capsule PO 20 mg DAILY CHUY Administration Gabapentin 600 mg 07/13/20 09:00 07/15/20 08:08 Gabapentin 300 Mg Capsule PO 600 mg BID CHUY Administration Ceftriaxone Sodium 2 gm in 100 mls @ 200 mls/hr 07/13/20 21:00 07/14/20 20:47 Rocephin 2 Gm/D5w 100 Ml IVPB Infused Q24H CHUY Infusion Vancomycin HCl 1,500 mg in 500 mls @ 333.333 mls/hr 07/14/20 18:00 07/15/20 07:19 Vancomycin 1,500 Mg/D5w 500 Ml IVPB Infused Q12H CHUY Infusion Loperamide HCl 2 mg 07/13/20 11:00 07/15/20 08:08 Loperamide Hcl 2 Mg Capsule PO 2 mg BID CHUY Administration Ondansetron HCl 4 mg 07/12/20 17:45 Ondansetron Inj 4 Mg/2 Ml Vial IV PUSH Q4H PRN Nausea Pantoprazole Sodium 40 mg 07/13/20 09:00 07/15/20 08:08 Pantoprazole 40 Mg Tablet PO 40 mg QAM CHUY Administration Rosuvastatin Calcium 10 mg 07/13/20 21:00 07/14/20 20:17 Rosuvastatin 10 Mg Tablet PO 10 mg HS CHUY Administration Radiology Results: ITS Impressions Joint Aspiration/Injection 07/13/20 12:56 IMPRESSION: 1. Ultrasound-guided right prepatellar bursa aspiration yielding 2 mm of opaque silvestre purulent appearing fluid. Labs Labs: Laboratory Results - last 24 hr 07/14/20 07/14/20 07/15/20 18:48 18:48 05:56 WBC 8.0 7.0 RBC 4.46 L 4.49 L Hgb 13.4 L 13.4 L Hct 40.6 L 40.7 L MCV 91.0 90.6 MCH 30.0 29.8 MCHC 33.0 32.9 RDW 12.9 12.8 Plt Count 146 L 146 L
[2020-07-15] MEDS: ROSUVASTATIN 10 MG TABLET PO (20:04)
[2020-07-15 22:00] VITALS: BP 127/65; PULSE 68; RESP 18; TEMP 36.6; O2SAT 96
[2020-07-15 23:05] VITALS: PULSE 72; O2SAT 97
[2020-07-16 02:42] VITALS: PULSE 69; O2SAT 96
[2020-07-16 05:34] LABS: Hematocrit 39.8 % (42.0-52.0); Hemoglobin 13.2 g/dL (14.0-18.0); Mean Corpuscular HGB Conc 33.2 g/dl (32-36); Mean Corpuscular Hemoglobin 29.2 pg (26-34); Mean Corpuscular Volume 88.1 fl (80-100); Mean Platelet Volume 10.2 fl (7.4-10.4); Platelet Count Result 174 k/mm3 (150-375); Red Blood Count 4.52 M/mm3 (4.6-6.20); Red Cell Distribution Width 12.6 % (11.5-14.5); White Blood Count 6.5 K/mm3 (4.5-10.0)
[2020-07-16 05:49] LABS: Anion Gap 5 mmol/L (8-16); Blood Urea Nitrogen 14 mg/dL (9-20); Carbon Dioxide 34 mmol/L (22-30); Chloride 104 mmol/L (98-107); Estimated CRCL calculation 83 ml/min; Estimated Glomerular Filt Rate > 60; Glucose 105 mg/dL (75-110); Potassium 4.2 mmol/L (3.4-5.0); Sodium 143 mmol/L (137-145)
[2020-07-16] MEDS: HYDROcodone/acetaminophen (*CRX) 5-325 MG TABLET 1 TAB PO ×2 (05:55→20:05)
[2020-07-16 06:00] VITALS: BP 131/78; PULSE 71; RESP 20; TEMP 36.4; O2SAT 99
[2020-07-16 06:19] LABS: Vancomycin Trough 9.8 ug/mL (10.0-20.0)
--- NOTE | 2020-07-16 07:27 | PM.PNORT ---
Progress Note: A&P Additional Plan Pt doing well, sensitivity not back yet, Dr Rivera will make recommendations once they are done.small superfical area over patella looks good, redness is gone around knee Subjective Subjective Date/Time Seen: 07/16/20 07:27 Objective Data Vital Signs Vital Signs: Vital Signs - 24 hr 07/15/20 14:00 07/15/20 22:00 07/15/20 23:05 Temperature 36.4 C 36.6 C Pulse Rate 73 68 72 Respiratory Rate 14 18 Blood Pressure 104/61 127/65 Pulse Oximetry 98 96 97 07/16/20 02:42 Temperature Pulse Rate 69 Respiratory Rate Blood Pressure Pulse Oximetry 96 Intake/Output Intake/Output: Intake & Output 07/13/20 07/14/20 07/15/20 07/16/20 23:59 23:59 23:59 23:59 Intake Total 2500 2750 2460 Output Total 1227 1020 Balance 1273 2750 1440 Meds/Results Medications: Active Medications Generic Name Dose Route Start Last Admin Trade Name Freq PRN Reason Stop Dose Admin Hydrocodone Bitart/Acetaminophen 1 tab 07/12/20 17:45 07/16/20 05:55 Hydrocodone/Acetaminophen (*Crx) 5-325 Mg Tablet PO 1 tab Q4H PRN Administration Pain Rated 4-6 Allopurinol 300 mg 07/13/20 09:00 07/15/20 08:08 Allopurinol 300 Mg Tablet PO 300 mg DAILY CHUY Administration Diclofenac Sodium 75 mg 07/13/20 09:00 07/15/20 16:43 Diclofenac Sod 75 Mg Tablet.Ec PO 75 mg BID CHUY Administration Fluoxetine HCl 20 mg 07/13/20 09:00 07/15/20 08:08 Fluoxetine Hcl 20 Mg Capsule PO 20 mg DAILY CHUY Administration Gabapentin 600 mg 07/13/20 09:00 07/15/20 16:43 Gabapentin 300 Mg Capsule PO 600 mg BID CHUY Administration Ceftriaxone Sodium 2 gm in 100 mls @ 200 mls/hr 07/13/20 21:00 07/15/20 20:04 Rocephin 2 Gm/D5w 100 Ml IVPB 200 mls/hr Q24H CHUY Administration Vancomycin HCl 1,750 mg in 500 mls @ 250 mls/hr 07/16/20 18:00 Vancomycin 1,750 Mg/D5w 500 Ml IVPB Q12H CHUY Loperamide HCl 2 mg 07/13/20 11:00 07/15/20 16:43 Loperamide Hcl 2 Mg Capsule PO 2 mg BID CHUY Administration Ondansetron HCl 4 mg 07/12/20 17:45 Ondansetron Inj 4 Mg/2 Ml Vial IV PUSH Q4H PRN Nausea Pantoprazole Sodium 40 mg 07/13/20 09:00 07/15/20 08:08 Pantoprazole 40 Mg Tablet PO 40 mg QAM CHUY Administration Rosuvastatin Calcium 10 mg 07/13/20 21:00 07/15/20 20:04 Rosuvastatin 10 Mg Tablet PO 10 mg HS CHUY Administration Radiology Results: ITS Impressions Joint Aspiration/Injection 07/13/20 12:56 IMPRESSION: 1. Ultrasound-guided right prepatellar bursa aspiration yielding 2 mm of opaque silvestre purulent appearing fluid. Labs Labs: Laboratory Results - last 24 hr 07/16/20 07/16/20 07/16/20 05:06 05:06 05:06 WBC 6.5 RBC 4.52 L Hgb 13.2 L Hct 39.8 L MCV 88.1 MCH 29.2 MCHC 33.2 RDW 12.6 Plt Count 174 MPV 10.2 Sodium 143 Potassium 4.2 Chloride 104 Carbon Dioxide 34 H Anion Gap 5 L BUN 14 Creatinine 0.80 Estim Creat Clear Calc 83 Estimated GFR > 60 Glucose 105 Calcium 9.0 Vancomycin Trough 9.8 L Quality VTE Prophylaxis VTE prophylaxis: mechanical ordered (To unaffected leg only)
[2020-07-16] MEDS: FLUoxetine HCL 20 MG CAPSULE PO (08:21)
[2020-07-16] MEDS: LOPERAMIDE HCL 2 MG CAPSULE PO ×2 (08:22→16:24)
[2020-07-16] MEDS: PANTOPRAZOLE 40 MG TABLET PO (08:22)
[2020-07-16] MEDS: allopurinoL 300 MG TABLET PO (08:23)
[2020-07-16] MEDS: DICLOFENAC SOD 75 MG TABLET.EC PO ×2 (08:23→16:24)
[2020-07-16] MEDS: GABAPENTIN 300 MG CAPSULE 600 MG PO ×2 (08:23→16:24)
--- NOTE | 2020-07-16 10:01 | PM.IMPN ---
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 Shortly after, he noticed erythema, warmth, exquisite tenderness, and difficulty bearing weight. The knee was aspirated in the ED. Knee x-ray showed a mild OA. He had low grade fever of 99.8 at presentation but has remained afebrile since. Leukocytosis is improving. Orthopedic surgery and infectious disease are following and input is greatly appreciated. He underwent ultrasound-guided joint aspiration by IR 07/13 with 2mm of opaque, silvestre purulent fluid aspirated, consistent with infection. Right knee aspirate aerobic culture demonstrates MSSA. Anaerobic culture shows WBCs wihtout organisms. IV vancomycin was discontinued 07/16 and he remains on IV ceftriaxone. Blood cultures reveal NGTD. Continue supportive care with RLE elevation, heat, and analgesics as needed. Await infectious disease input regarding recommended duration of IV antibiotic therapy and discharge recommendations for PO therapy. Hemoglobin A1c was 5.3%. (2) Obstructive sleep apnea on CPAP: Code(s): G47.33 - Obstructive sleep apnea (adult) (pediatric); Z99.89 - Dependence on other enabling machines and devices Status: Acute Assessment and Plan: Continue CPAP titrated to home settings. (3) Gout: Code(s): M10.9 - Gout, unspecified Status: Acute Assessment and Plan: Patient has a history of gout, although exam and lab findings felt to be more consistent with bursitis. Uric acid level was low. Continue allopurinol. (4) Gastroesophageal reflux disease: Code(s): K21.9 - Gastro-esophageal reflux disease without esophagitis Status: Inactive Assessment and Plan: He reports intermittent heartburn which is worse at night. Continue protonix. (5) Chronic obstructive pulmonary disease: Code(s): J44.9 - Chronic obstructive pulmonary disease, unspecified Status: Acute Assessment and Plan: Chronic and stable. Continue albuterol as needed. (6) Peripheral neuropathy: Code(s): G62.9 - Polyneuropathy, unspecified Status: Inactive Assessment and Plan: Chronic. Unclear etiology. Continue gabapentin. Subjective Date/time seen: 07/16/20 10:01 Mr. Chirinos is a 59 y.o. male with a history of COPD, gout, DAISHA and peripheral neuropathy who is seen in follow up for septic prepatellar bursitis. He is doing better today with pain only 3/10, improved ROM, and minimal erythema. He is ambulating without difficulty. He denies subjective fever and chills. His is tolerating his diet with good appetite. He has no other complaints. Review of Systems Review of Systems: All systems reviewed & are unremarkable except as noted in HPI and below Exam Narrative: Exam Narrative: General: Well-developed, well-nourished, and cooperative 59 y.o. male who is lying semi-recumbent in bed watching TV in no acute distress. HEENT: Normocephalic and atraumatic. Oral mucosa moist. Neck: Supple. Cardiac: Regular rate and rhythm. S1 and S2 normal. Lungs: Lungs are clear to auscultation bilaterally. Abdomen: Normoactive bowel sounds. Abdomen is soft, non-distended, and non-tender. Extremities: Right knee edema and erythema improved significantly with no edema, minimal erythema. Good AROM. No calf tenderness. Pedal pulses 2+ bilaterally. Neurological: Alert. Exam non-focal to casual conversation. Speech is clear. Skin: Warm and dry. Vitiligo present. Erythema at right knee improved. Small open superficial wound with scant serous drainage at right anterior aspect of knee. Psychiatric: Judgment and insight intact. Pleasant mood and ladonna
[2020-07-16 13:22] VITALS: BP 105/62; PULSE 72; RESP 18; TEMP 36; O2SAT 97
[2020-07-16] MEDS: ROSUVASTATIN 10 MG TABLET PO (20:05)
[2020-07-16] MEDS: ENOXAPARIN 40 MG/0.4 ML SYRINGE SUB-Q (20:05)
[2020-07-16 22:00] VITALS: BP 121/74; PULSE 70; RESP 16; TEMP 36.6; O2SAT 100
[2020-07-16 22:50] VITALS: PULSE 76; O2SAT 95
[2020-07-17 02:15] VITALS: PULSE 70; O2SAT 96
[2020-07-17 05:42] LABS: Hematocrit 39.3 % (42.0-52.0); Hemoglobin 13.2 g/dL (14.0-18.0); Mean Corpuscular HGB Conc 33.6 g/dl (32-36); Mean Corpuscular Hemoglobin 29.4 pg (26-34); Mean Corpuscular Volume 87.5 fl (80-100); Platelet Count Result 178 k/mm3 (150-375); Red Blood Count 4.49 M/mm3 (4.6-6.20); Red Cell Distribution Width 12.2 % (11.5-14.5); White Blood Count 6.5 K/mm3 (4.5-10.0)
[2020-07-17 05:56] LABS: Anion Gap 6 mmol/L (8-16); Blood Urea Nitrogen 20 mg/dL (9-20); Calcium 9.1 mg/dL (8.4-10.2); Carbon Dioxide 33 mmol/L (22-30); Chloride 101 mmol/L (98-107); Estimated CRCL calculation 83 ml/min; Estimated Glomerular Filt Rate > 60; Glucose 107 mg/dL (75-110); Potassium 4.1 mmol/L (3.4-5.0); Sodium 140 mmol/L (137-145)
[2020-07-17 06:00] VITALS: BP 110/74; PULSE 63; RESP 18; TEMP 35.9; O2SAT 96
[2020-07-17] MEDS: allopurinoL 300 MG TABLET PO (08:32)
[2020-07-17] MEDS: FLUoxetine HCL 20 MG CAPSULE PO (08:32)
[2020-07-17] MEDS: LOPERAMIDE HCL 2 MG CAPSULE PO ×2 (08:32→17:16)
[2020-07-17] MEDS: DICLOFENAC SOD 75 MG TABLET.EC PO ×2 (08:32→17:16)
[2020-07-17] MEDS: GABAPENTIN 300 MG CAPSULE 600 MG PO ×2 (08:33→17:16)
[2020-07-17] MEDS: PANTOPRAZOLE 40 MG TABLET PO (08:33)
[2020-07-17] MEDS: HYDROcodone/acetaminophen (*CRX) 5-325 MG TABLET 1 TAB PO (08:36)
[2020-07-17 14:00] VITALS: BP 111/71; PULSE 61; RESP 16; TEMP 36; O2SAT 98
--- NOTE | 2020-07-17 15:09 | PM.IMPN ---
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 Shortly after, he noticed erythema, warmth, exquisite tenderness, and difficulty bearing weight. The knee was aspirated in the ED. Knee x-ray showed a mild OA. He had low grade fever of 99.8 at presentation but has remained afebrile since. Leukocytosis is improving. Orthopedic surgery and infectious disease are following and input is greatly appreciated. He underwent ultrasound-guided joint aspiration by IR 07/13 with 2mm of opaque, silvestre purulent fluid aspirated, consistent with infection. Right knee aspirate aerobic culture demonstrates MSSA. Anaerobic culture shows WBCs wihout organisms. IV vancomycin was discontinued 07/16 and he remains on IV ceftriaxone. Blood cultures reveal NGTD. Continue supportive care with RLE elevation, heat, and analgesics as needed. Await infectious disease input regarding recommended duration of IV antibiotic therapy and discharge recommendations for PO therapy. Hemoglobin A1c was 5.3%. (2) Obstructive sleep apnea on CPAP: Code(s): G47.33 - Obstructive sleep apnea (adult) (pediatric); Z99.89 - Dependence on other enabling machines and devices Status: Acute Assessment and Plan: Continue CPAP titrated to home settings. (3) Gout: Code(s): M10.9 - Gout, unspecified Status: Acute Assessment and Plan: Patient has a history of gout, although exam and lab findings felt to be more consistent with bursitis. Uric acid level was low. Continue allopurinol. (4) Gastroesophageal reflux disease: Code(s): K21.9 - Gastro-esophageal reflux disease without esophagitis Status: Inactive Assessment and Plan: Continue protonix. (5) Chronic obstructive pulmonary disease: Code(s): J44.9 - Chronic obstructive pulmonary disease, unspecified Status: Acute Assessment and Plan: Chronic and stable. Continue albuterol as needed. (6) Peripheral neuropathy: Code(s): G62.9 - Polyneuropathy, unspecified Status: Inactive Assessment and Plan: Chronic. Unclear etiology. Continue gabapentin. Subjective Date/time seen: 07/17/20 15:09 Mr. Chirinos is a 59 y.o. male with a history of COPD, gout, DAISHA and peripheral neuropathy who is seen in follow up for septic prepatellar bursitis. Pain and swelling continue to improve. He still has some mild edema anteriorly. Erythema has improved. He is tolerating his diet and denies subjective fever and chills. He denies nausea and vomiting. He has no other concerns. Review of Systems Review of Systems: All systems reviewed & are unremarkable except as noted in HPI and below Exam Narrative: Exam Narrative: General: Well-developed, well-nourished, and cooperative 59 y.o. male resting comfortably in bed watching TV in no acute distress. HEENT: Normocephalic and atraumatic. Oral mucosa moist. Neck: Supple. Cardiac: Regular rate and rhythm. S1 and S2 normal. Lungs: Lungs are clear to auscultation bilaterally. Abdomen: Normoactive bowel sounds. Abdomen soft, non-distended, and non-tender. Extremities: No significant generalized lower extremity edema bilaterally. No calf tenderness. Pedal pulses 2+ bilaterally. Neurological: Alert. No focal deficits to casual conversation. Speech is clear. Skin: Warm and dry. Vitiligo throughout. Mild edema surrounding the patella, erythema improved. Small superficial 1x1cm wound with serous drainage. Psychiatric: Lucid. Good insight and judgment. Pleasant mood, appropriate affect. Objective Data Vital Signs Vital Signs: Vital Signs - 24 hr 07/16/20 22:00 07/16/20 22:5
--- NOTE | 2020-07-17 15:54 | WPDINFPN2 ---
Progress Note: A&P Assessment and Plan (1) Septic prepatellar bursitis of right knee: Code(s): M71.161 - Other infective bursitis, right knee Status: Acute Assessment and Plan: 1. S aureus septic bursitis, right knee. Recovering. No arthritis clinically. Etiology = skin trauma 2. Sulfa allergy REC Stop IV therapy, and begin dicloxacillin x 14 days. Ok discharge, patient counseled to avoid skin trauma or kneeling for 2 weeks. Subjective Date/time seen: 07/17/20 15:54 Interval history: bears weight without difficulty No chills no dyspnea. Exam Narrative: Exam Narrative: afebrile Const: General: no acute distress Eyes: General: appearance normal, both eyes and all related structures Resp: Effort & Inspection: normal respiratory effort Auscultation: clear to auscultation bilaterally Cardio: Rate: regular rate Rhythm: regular rhythm Heart sounds: no gallops and no murmurs GI: Inspection: non-distended GI Palp: Yes Soft to palpation and No Tenderness to palpation present (GI) Skin: Other: acral depigmentation Extrem: Other: normal ROM actively R knee. Skin defect with ulcer/minimal slough. Mild surrounding erythema. No warmth nor tenderness Objective Data Vital Signs Vital Signs: Vital Signs - 24 hr 07/16/20 22:00 07/16/20 22:50 07/17/20 02:15 Temperature 36.6 C Pulse Rate 70 76 70 Respiratory Rate 16 Blood Pressure 121/74 Pulse Oximetry 100 95 96 07/17/20 06:00 07/17/20 14:00 Temperature 35.9 C L 36.0 C L Pulse Rate 63 61 Respiratory Rate 18 16 Blood Pressure 110/74 111/71 Pulse Oximetry 96 98 Intake/Output Intake/Output: Intake & Output 07/14/20 07/15/20 07/16/20 07/17/20 23:59 23:59 23:59 23:59 Intake Total 2750 2560 3640 1760 Output Total 1020 3740 900 Balance 2750 1540 -100 860 Meds/Results Medications: Active Medications Generic Name Dose Route Start Last Admin Trade Name Freq PRN Reason Stop Dose Admin Hydrocodone Bitart/Acetaminophen 1 tab 07/12/20 17:45 07/17/20 08:36 Hydrocodone/Acetaminophen (*Crx) 5-325 Mg Tablet PO 1 tab Q4H PRN Administration Pain Rated 4-6 Allopurinol 300 mg 07/13/20 09:00 07/17/20 08:32 Allopurinol 300 Mg Tablet PO 300 mg DAILY CHUY Administration Diclofenac Sodium 75 mg 07/13/20 09:00 07/17/20 08:32 Diclofenac Sod 75 Mg Tablet.Ec PO 75 mg BID CHUY Administration Dicloxacillin Sodium 500 mg 07/17/20 18:00 Dicloxacillin Sodium 250 Mg Capsule PO 07/31/20 18:01 Q6HR CHUY Enoxaparin Sodium 40 mg 07/16/20 21:00 07/16/20 20:05 Enoxaparin 40 Mg/0.4 Ml Syringe SUB-Q 40 mg HS [facility] Administration Fluoxetine HCl 20 mg 07/13/20 09:00 07/17/20 08:32 Fluoxetine Hcl 20 Mg Capsule PO 20 mg DAILY CHUY Administration Gabapentin 600 mg 07/13/20 09:00 07/17/20 08:33 Gabapentin 300 Mg Capsule PO 600 mg BID CHUY Administration Loperamide HCl 2 mg 07/13/20 11:00 07/17/20 08:32 Loperamide Hcl 2 Mg Capsule PO 2 mg BID CHUY Administration Ondansetron HCl 4 mg 07/12/20 17:45 Ondansetron Inj 4 Mg/2 Ml Vial IV PUSH Q4H PRN Nausea Pantoprazole Sodium 40 mg 07/13/20 09:00 07/17/20 08:33 Pantoprazole 40 Mg Tablet PO 40 mg QAM CHUY Administration Rosuvastatin Calcium 10 mg 07/13/20 21:00 07/16/20 20:05 Rosuvastatin 10 Mg Tablet PO 10 mg HS CHUY Administration Radiology Results: ITS Impressions Joint Aspiration/Injection 07/13/20 12:56 IMPRESSION: 1. Ultrasound-guided right prepatellar bursa aspiration yielding 2 mm of opaque silvestre purulent appearing fluid. Labs Labs: Laboratory Results - last 24 hr 07/17/20 07/17/20 05:24 05:24 WBC 6.5 RBC 4.49 L Hgb 13.2 L Hct 39.3 L MCV 87.5 MCH 29.4 MCHC 33.6 RDW 12.2 Plt Count 178 MPV 10.0 Sodium 140 Potassium 4.1 Chloride 101 Carbon Dioxide 33 H Anion Gap 6 L BUN 20 Creatinine 0.80 Estim Creat Clear Calc 83 Est
--- NOTE | 2020-07-17 16:16 | PM.DS ---
DS: Admitting Diagnosis Admitting Diagnosis Admitting Diagnosis: Right knee infection. DS: Discharge Diagnosis Discharge Diagnosis (1) Septic prepatellar bursitis of right knee: Code(s): M71.161 - Other infective bursitis, right knee Status: Acute Assessment and Plan: Discharge Summary (Date of service 07/17/20): Mr. Chirinos is a 59 y.o. male with PMH significant for COPD, DAISHA on CPAP, GERD, HLD and peripheral neuropathy secondary to spinal stenosis who presented to the emergency department for the evaluation of right knee infection. 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 Shortly after, he noticed erythema, warmth, exquisite tenderness, and difficulty bearing weight. Initial workup on presentation to the emergency department included knee xray with mild osteoarthritis of medial and patellofemoral compartments, WBC 15,700, Hb 15.5, Hct 45.9. platelets 147, BMP essentially unremarkable with the exception of glucose 148, lactic acid 0.8, CRP 8.7. He had a low grade fever of 99.8 at presentation. He was treated with IV vancomycin and cefazolin and admitted to the hospitalist service. Orthopedic surgery and infectious disease were consulted. Infectious disease changed IV cefazolin to IV ceftriaxone. He underwent ultrasound-guided joint aspiration by IR 07/13 which yielded 2mm of opaque, silvestre purulent fluid, consistent with infection. Right knee aspirate aerobic culture demonstrated MSSA. Anaerobic culture showed WBCs without organisms. IV vancomycin was discontinued 07/16 and he remains on IV ceftriaxone. Blood cultures revealed no growth to date. His knee swelling, erythema, and warmth improved significantly. His range of motion improved and he was ambulating and bearing weight without difficulty. His leukocytosis resolved and he remained afebrile. Hemoglobin A1c was 5.3%. He no longer required IV antibiotic therapy. Infectious disease recommended discharge on PO oxacillin. He was discharged in stable condition on the afternoon of 07/17/20. (2) Obstructive sleep apnea on CPAP: Code(s): G47.33 - Obstructive sleep apnea (adult) (pediatric); Z99.89 - Dependence on other enabling machines and devices Status: Acute Assessment and Plan: CPAP titrated to home settings was continued. (3) Gout: Code(s): M10.9 - Gout, unspecified Status: Acute Assessment and Plan: Patient has a history of gout, although exam and lab findings felt to be more consistent with bursitis. Uric acid level was low. Allopurinol was continued. (4) Gastroesophageal reflux disease: Code(s): K21.9 - Gastro-esophageal reflux disease without esophagitis Status: Inactive Assessment and Plan: Protonix was continued. (5) Chronic obstructive pulmonary disease: Code(s): J44.9 - Chronic obstructive pulmonary disease, unspecified Status: Acute Assessment and Plan: Chronic and stable. Albuterol was continued as needed. (6) Peripheral neuropathy: Code(s): G62.9 - Polyneuropathy, unspecified Status: Inactive Assessment and Plan: Chronic. Unclear etiology. Gabapentin was continued. DS: Summary Hospital Course Reason for hospitalization: Right knee infection Hospital Course: As above. Status at Discharge Functional status at discharge: independent ambulation Overall status at discharge: patient is back to baseline Time Spent with Patient Time attestation: Total time spent providing and/or coordinating discharge services: 35 minutes Exam Narrative: Exam Narrative: Vitals at presentation: Temp Pulse Resp BP Pulse Ox 97.9 F 102 H 20 144/83 H 97 07/12/20 15:29 07/12/20 15:29 07/12/20
[2020-07-17] MEDS: DICLOXACILLIN SODIUM 250 MG CAPSULE 500 MG PO (17:16)
== END 2020-07-17 17:34 | disposition home or self-care (01) | DRG 558 ==
LOC: ANHED 17:38 → ANH2MED 18:13
PROVIDERS: Internal Medicine Infectious Disease; Orthopaedic Surgery; Physician Assistant; Admitting Provider Internal Medicine; Emergency Provider General Practice; PCP Family Medicine; Visit Provider Physician Assistant
DX: M71.161 Other infective bursitis, right knee (principal); B95.61 Methicillin susceptible Staphylococcus aureus infection as the cause of diseases classified elsewhere; G47.33 Obstructive sleep apnea (adult) (pediatric); K21.9 Gastro-esophageal reflux disease without esophagitis; E78.5 Hyperlipidemia, unspecified; M10.9 Gout, unspecified; M48.02 Spinal stenosis, cervical region; M48.061 Spinal stenosis, lumbar region without neurogenic claudication; G62.9 Polyneuropathy, unspecified; J44.9 Chronic obstructive pulmonary disease, unspecified; L80 Vitiligo; Z87.891 Personal history of nicotine dependence; Z88.2 Allergy status to sulfonamides; Z99.89 Dependence on other enabling machines and devices
CPT/HCPCS: 20611; 36415; 73564; 80048; 80053; 80202; 83036; 83605; 84550; 85025; 85027; 85055; 85652; 86140; 87040; 87070; 87075; 87147; 87186; 87205; 89051; 89060; 94660; 96365; 96366; 96367; 96375; 99213; 99285; A9270; G0378; G0463; J0690; J0696; J1650; J1885; J3370

== ENCOUNTER → 2020-11-18 07:26 | Outpatient (CLI) | payer MEDICARE, OTHER, SELFPAY ==
[2020-11-18 20:42] LABS: SARS-CoV-2 RNA PCR Positive
== END ==
PROVIDERS: PCP Family Medicine; Visit Provider Family Medicine
DX: U07.1 COVID-19 (principal)
CPT/HCPCS: C9803; U0003; U0005

== ENCOUNTER 2020-12-03 14:04 | Outpatient (CLI) | payer MEDICARE, OTHER, SELFPAY ==
--- NOTE | ~2020-12-03 | CT_ITS ---
EXAMINATION: CT brain wo/w con DATE: 12/03/2020 14:46 INDICATION: New daily persistent headache. TECHNIQUE: Computed tomography (CT) of the head was performed without and with 100 mL Omnipaque 350 i ntravenous contrast. The mA was adjusted according to patient size. Iterative reconstruction techniqu e was employed. The dose-length product was 1059.33 mGy-cm. COMPARISON: None FINDINGS: There is no intracranial hemorrhage, acute infarction, or abnormal intracranial mass lesion . The ventricles are normal in size. The paranasal sinuses are clear. There is a right mastoid effusi on. The orbits are normal. There is an intramuscular lipoma in left posterior neck. IMPRESSION: 1. Normal brain. Reviewed, dictated and finalized at location A. [employer] IMPRESSION: 1. Normal brain.
== END 2020-12-03 14:05 | disposition home or self-care (01) ==
LOC: ANHIMG 14:09
PROVIDERS: PCP Family Medicine; Visit Provider Family Medicine
DX: G44.52 New daily persistent headache (NDPH) (principal)
CPT/HCPCS: 70470; Q9967

== ENCOUNTER 2021-02-26 15:08 | Outpatient (CLI) | payer MEDICARE, OTHER, SELFPAY ==
--- NOTE | ~2021-02-26 | CT_ITS ---
EXAMINATION: CT soft tissue neck chest w DATE: 02/26/2021 15:51 INDICATION: Left posterior neck mass. Neck pain. Chronic shortness of breath. TECHNIQUE: Computed tomography (CT) of the neck and chest was performed with 75 mL Omnipaque-350 intr avenous contrast. Automated exposure control and iterative reconstruction technique were employed. Th e dose-length product was 1170.14 mGy-cm. COMPARISON: Chest CT 12/08/2017 FINDINGS: CT NECK: There is a 5.2 x 2.9 x 6.5 cm intramuscular hematoma in left posterior neck. There are no pa thologically enlarged lymph nodes. There is plaque in the proximal internal carotid arteries with 0% stenosis relative to normal distal artery lumen diameters. There is severe cervical spondylosis. CT CHEST: There is mild scarring at right lung apex. No pleural effusion. There is an aberrant right subclavian artery. The heart size is normal. No pericardial effusion. There is mild thoracic spondylo sis. IMPRESSION: 1. 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 Reviewed, dictated and finalized at location A.
[2021-02-26 15:38] LABS: Estimated Glomerular Filt Rate > 60
== END 2021-02-26 15:09 | disposition home or self-care (01) ==
PROVIDERS: PCP Family Medicine; Visit Provider Physician Assistant
DX: D17.0 Benign lipomatous neoplasm of skin and subcutaneous tissue of head, face and neck (principal)
CPT/HCPCS: 70491; 71260; Q9967

== ENCOUNTER 2021-03-04 09:32 | Outpatient (CLI) | payer MEDICARE, OTHER, SELFPAY ==
--- NOTE | 2021-03-04 09:43 | ECHO_ITS ---
Patient Info Name: Almas Chirinos Age: 60 years : 1960 Gender: Male Ht: 68 in Wt: 185 lbs BSA: 2.03 m2 HR: 76 bpm BP: 146 / 106 mmHg Heart Rhythm: Sinus Rhythm Exam Date: 03/04/2021 9:58 AM Exam Location: [facility] Patient Status: Outpatient Admit Date: 03/04/2021 Staff Ordering Physician: Min Cantu PA-C Solar Lab Technician: Monique Wilson RDCS Attending Provider: Min Cantu PA-C Referring Physician: Alondra ROBBISN; Exam Type: CA echo doppler color flow Study Info Indications R55 - Syncope and collapse Complete two-dimensional, color flow and Doppler transthoracic echocardiogram is performed. Summary 1. Complete two-dimensional, color flow and Doppler transthoracic echocardiogram is performed. 2. Left ventricular chamber dimension is normal. 3. Left ventricular systolic function is normal, estimated at 55-60%. 4. The left ventricular diastolic function is grade II diastolic dysfunction. 5. E/e' 6 is not elevated. 6. There is mild mitral valve regurgitation. Left Ventricle E/e' 6 is not elevated. Left ventricular chamber dimension is normal. Left ventricular systolic function is normal, estimated at 55-60%. The left ventricular diastolic function is grade II diastolic dysfunction. Right Ventricle Right ventricular systolic function is normal and with normal TAPSE 2.3 cm. Right ventricular chamber dimension is normal. Left Atria Left atrial chamber dimension is normal. Right Atria Right atrial chamber dimension is normal. Aortic Valve The aortic valve is trileaflet. There is no aortic valve stenosis. There is no aortic valve regurgitation. Pulmonic Valve There is no pulmonic regurgitation. Mitral Valve There is no mitral valve stenosis. There is mild mitral valve regurgitation. Tricuspid Valve There is no tricuspid valve regurgitation. Pericardium/Pleural There is no pericardial effusion. Inferior Vena Cava Normal inferior vena cava with >50% collapse upon inspiration consistent with normal right atrial pressure, 5 mmHg. Aorta The aortic root size at the sinus of Valsalva is normal. Left Ventricular Outflow Tract Name Value Normal LVOT 2D LVOT Diameter 2.0 cm LVOT Doppler LVOT Peak Gradient 3 mmHg LVOT Mean Gradient 1 mmHg LVOT VTI 20 cm LVOT VTI/AV VTI Ratio 0.7 LVOT Stroke Volume 64 ml LVOT CO 4.0 l/min LVOT CI 2.0 l/min/m2 Pulmonic Valve Name Value Normal RVOT Doppler RVOT Peak Gradient 1 mmHg PV Doppler PV Peak Gradient 4 mmHg Mitral Valve
--- NOTE | 2021-03-09 16:15 | WPDHOLTEREM ---
Holter/Event Monitor Holter/Event Monitor Date of procedure: 03/04/21 Procedure Type: 24 hour holter monitor Indications: Syncope Conclusion: 1. 24 hour holter monitor on 03/04/21. 2. Underlying rhythm is sinus rhythm. HR range 53-121 bpm; average HR 77 bpm. 3. There are 42 premature supraventricular complexes and 1 supraventricular couplet. No supraventricular tachycardia. 4. There are 112 premature ventricular complexes and 1 ventricular couplet. No ventricular tachycardia. 5. No sinoatrial or atrioventricular blocks. No significant pauses greater than 2 seconds. 6. Patient reports symptoms of lightheadedness, unsteadiness, exhausted, dizziness and chest pain which demonstrate sinus rhythm, HR range 75-100 bpm.
== END 2021-03-04 09:33 | disposition home or self-care (01) ==
PROVIDERS: PCP Family Medicine; Visit Provider Physician Assistant
DX: R55 Syncope and collapse (principal); G47.33 Obstructive sleep apnea (adult) (pediatric); I34.0 Nonrheumatic mitral (valve) insufficiency; R93.1 Abnormal findings on diagnostic imaging of heart and coronary circulation
CPT/HCPCS: 93225; 93226; 93306

== ENCOUNTER 2021-06-02 12:35 | Emergency (ER) | payer MEDICARE, OTHER, SELFPAY ==
--- NOTE | ~2021-06-02 | CT_ITS ---
EXAMINATION: CT soft tissue neck w con EXAM DATE: 06/02/2021 15:37 INDICATION: Swelling left neck left-sided neck swelling. TECHNIQUE: Spiral CT of the neck was performed following intravenous injection of 75 mL Omnipaque 350 . Axial, coronal and sagittal images were reviewed. The dose-length product (DLP) for this examinat ion was 661.37 mGy-cm. The exposure was tailored according to patient size (auto mA exposure control ), and iterative reconstruction (ASIR) was used as additional dose reduction technique. There is no prior study for comparison. FINDINGS: There are 4 stones identified in left sublingual location suspected to be within the left s ubmandibular gland duct. 3 are identified on image 51, largest measuring up to 10 mm in size. The mos t anterior stone identified on image 47. These have been indicated. There is edema of the left subman dibular gland also involving the left masseter muscle. The thyroid gland is unremarkable. Parotid glands unremarkable. There is no cervical lymphadenopat hy. There are no masses identified. The superior mediastinum is unremarkable. The airway is unr emarkable. Parapharyngeal and pre-glottic fat planes are preserved. The opacified vasculature is patent. There is an aberrant right subclavian artery, a normal congenital variant. The orbits are un remarkable. Visualized sinuses and mastoid air cells are well aerated. Lung apices unremarkable. There is cervical spondylosis. IMPRESSION: Left submandibular duct sialolithiasis and resultant sialoadenitis. Reviewed, dictated and finalized at location A.
[2021-06-02 13:02] VITALS: BP 148/93; PULSE 71; RESP 18; TEMP 36.4; O2SAT 98
--- NOTE | 2021-06-02 13:59 | ED.GENADULT ---
HPI - General Adult General Chief complaint: Unspecified Stated complaint: Salivary gland blocked Time Seen by Provider: 06/02/21 13:18 Source: patient and RN notes reviewed Mode of arrival: ambulatory Limitations: no limitations History of Present Illness HPI narrative: Patient is a 60-year-old male who presents to emergency department for evaluation of left-sided jaw pain and swelling patient notes similar occurrence in the past diagnosed as a stone he believes that it may be infected at this time since he is able to express a small amount of purulence from the wound patient denies fever chills nausea vomiting or other complaints. Related Data Home Medications Medication Instructions Recorded Confirmed Immodium 1 cap PO BID 07/11/20 08/04/20 esomeprazole magnesium 40 mg PO DAILY 07/11/20 08/04/20 gabapentin 600 mg PO BID 07/11/20 08/04/20 Allergies Allergy/AdvReac Type Severity Reaction Status Date / Time fluticasone Allergy Unknown Skin Verified 06/02/21 13:24 Reaction salmeterol [Advair Diskus] Allergy Unknown Skin Verified 06/02/21 13:24 Reaction Sulfa (Sulfonamide Allergy Unknown Skin Verified 06/02/21 13:24 Antibiotics) Reaction Review of Systems Review of Systems: All systems reviewed & are unremarkable except as noted in HPI and below PMFSH Past Medical History Medical History Anxiety Arthritis Asthma Chronic back pain Stenosis of the cervical and lumbar regions. Chronic obstructive pulmonary disease history of COPD with sleep apnea. Patient uses CPAP machine. Continue CPAP. 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 Bilateral knee arthroscopy. Bilateral carpal tunnel release. Left Achilles tendon repair. Right tibialis anterior repair. Left rotator cuff repair. Family History Family History Mother Diabetes mellitus Father Acute myocardial infarction, Onset Age: 78 Family history of Alzheimer's disease Sibling Family history of malignant neoplasm Other Family history of arthritis Family history of cardiovascular disease Hypertension Social History Social History Social History: Surrogate decision maker: Lulu Whaley, . Code status: Full code. Smoking packs per day: 1 Smoking cigarettes per day: 20.0 Years smoked: 30 Smoking pack-years: 30.00 Second hand tobacco smoke exposure: Yes Smoking end date: 08/18/18 Alcohol intake: current Alcohol use details: Drinks alcohol socially and in moderation. Substance use: never Substance use type: does not use Additional living arrangements comments: Lives with his in [place]. 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 Gender identity (if verbalized by the patient): Male Sexual Orientation (if Verbalized by the Patient): Straight or Heterosexual Spiritual care concerns: No Exam Narrative: GENERAL: Well-appearing, well-nourished, and in no acute distress. HEAD: Normocephalic, atraumatic. EYES: PERRLA and EOMI. ENT: Nares clear, no rhinorrhea or epistaxis. Mucous membranes dry. Uvula midline no trismus or drooling able to express purulence from the salivary gland no erythema or mass-effect in the oropharynx floor the mouth is soft. Slight swelling to the left submandibular region no erythema fluctuance NECK: Supple. No adenopathy or masses. CHEST: Clear to auscultation. No respiratory distress. No wheezes rales or rhonchi HEART: Regular rate and rhythm. No murmur heard. Normal peripheral
[2021-06-02] MEDS: LACTATED RINGERS 1,000 ML 999 ML IV CONT (14:12)
[2021-06-02] MEDS: KETOROLAC 30 MG/ML VIAL (*BKC) IV PUSH (14:13)
[2021-06-02] MEDS: DEXAMETHASONE SOD PHOS INJ 4 MG/ML VIAL 10 MG IV PUSH (14:14)
[2021-06-02] MEDS: AMPICILLIN SULB 3 GM/NS 100 ML 3 GM/100 ML VIAL IVPB (14:14)
[2021-06-02 14:45] LABS: Basophils Percent Auto 0.2 % (0.2-1.2); Eosinophils Absolute Auto 0.3 K/mm3 (0-0.3); Hematocrit 46.2 % (42.0-52.0); Hemoglobin 15.6 g/dL (14.0-18.0); Immature Granulocyte Absolute 0.03 K/mm3 (0.00-0.031); Immature Granulocyte Percent A 0.3 % (0-0.5); Immature Platelet Fraction Pct 5.3 % (0.9-11.2); Lymphocytes Absolute Auto 1.37 K/mm3 (0.9-3.2); Lymphocytes Percent Auto 15.5 % (18.3-44.2); Mean Corpuscular HGB Conc 33.8 g/dl (32-36); Mean Corpuscular Hemoglobin 30.2 pg (26-34); Mean Corpuscular Volume 89.5 fl (80-100); Mean Platelet Volume 10.6 fl (7.4-10.4); Monocytes Absolute Auto 0.5 K/mm3 (0.1-0.6); Monocytes Percent Auto 5.6 % (2.6-8.5); Neutrophils Absolute Auto 6.7 K/mm3 (1.3-6.7); Neutrophils Percent Auto 75.4 % (45.5-73.1); Platelet Count Result 123 k/mm3 (150-375); Red Blood Count 5.16 M/mm3 (4.6-6.20); Red Cell Distribution Width 13.2 % (11.5-14.5); White Blood Count 8.9 K/mm3 (4.5-10.0)
[2021-06-02 14:56] LABS: Alanine Aminotransferase 12 U/L (4-50); Albumin Level 4.4 g/dL (3.5-5.1); Alkaline Phosphatase 69 U/L (38-126); Anion Gap 6 mmol/L (8-16); Aspartate Amino Transferase 26 U/L (17-59); Bilirubin,Total 0.8 mg/dL (0.2-1.3); Blood Urea Nitrogen 16 mg/dL (9-20); Carbon Dioxide 25 mmol/L (22-30); Chloride 108 mmol/L (98-107); Estimated CRCL calculation 92 ml/min; Estimated Glomerular Filt Rate > 60; Glucose 100 mg/dL (65-110); Potassium 4.2 mmol/L (3.4-5.0); Sodium 139 mmol/L (137-145)
[2021-06-02 17:20] VITALS: BP 142/84; PULSE 72; RESP 18; TEMP 36.8; O2SAT 99
== END 2021-06-02 17:20 | disposition home or self-care (01) ==
PROVIDERS: Emergency Medicine Emergency Medical Services; Emergency Provider Emergency Medicine; PCP Family Medicine
DX: K11.20 Sialoadenitis, unspecified (principal); M19.90 Unspecified osteoarthritis, unspecified site; G89.29 Other chronic pain; E78.00 Pure hypercholesterolemia, unspecified; G47.33 Obstructive sleep apnea (adult) (pediatric); F17.210 Nicotine dependence, cigarettes, uncomplicated
CPT/HCPCS: 36415; 70491; 80053; 85025; 85055; 96365; 96367; 96375; 99284; J0131; J0295; J1100; J1885; J7120; Q9967

== ENCOUNTER 2021-06-03 20:30 | Emergency (ER) | payer MEDICARE, OTHER, SELFPAY ==
--- NOTE | ~2021-06-03 | CT_ITS ---
EXAMINATION: CT facial bones w con DATE: 06/03/2021 23:17 INDICATION: Infected salivary gland with drainage. TECHNIQUE: Computed tomography (CT) of the facial bones and maxillofacial region was performed with 1 00 mL Omnipaque 350 intravenous contrast. Automated exposure control and iterative reconstruction naomi hnique were employed. The dose-length product was 521.28 mGy-cm. COMPARISON: Neck CT 06/02/2021 FINDINGS: The left submandibular gland is enlarged and edematous with edema in the surrounding fat. T here are approximately 4 stones in the duct of the left submandibular gland with the largest measurin g 11 x 5 mm. There is mild plaque in proximal left internal carotid artery with 0% stenosis relative to normal distal artery lumen diameter. There is mild mucosal thickening in the paranasal sinuses. Th ere is a right mastoid effusion. IMPRESSION: 1. Stones in the duct of left submandibular gland with sialadenitis involving left submandibular glan d. Reviewed, dictated and finalized at location A. IMPRESSION: 1. Stones in the duct of left submandibular gland with sialadenitis involving l eft submandibular gland.
[2021-06-03 20:33] VITALS: BP 155/96; PULSE 93; RESP 17; TEMP 36.4; O2SAT 99
--- NOTE | 2021-06-03 21:25 | ED.SKABFB ---
HPI - Skin/Abscess/Foreign Bdy General Chief complaint: Skin/Abscess/Foreign Body Stated complaint: salivary gland issue Time Seen by Provider: 06/03/21 20:56 History of Present Illness HPI narrative: Patient presents with facial pain. Patient was seen yesterday diagnosed with a salivary stone discharged home on antibiotics instructed to call ENT. Patient called ENT and has a follow-up appointment next week however his pain is worsening they will express purulent material and noted discoloration in his mouth so is concerned he wanted to come the ER for evaluation denies any fevers, chills, nausea, vomiting. Reports he has been using secretagogues Related Data Home Medications Medication Instructions Recorded Confirmed Immodium 1 cap PO BID 07/11/20 08/04/20 esomeprazole magnesium 40 mg PO DAILY 07/11/20 08/04/20 gabapentin 600 mg PO BID 07/11/20 08/04/20 Allergies Allergy/AdvReac Type Severity Reaction Status Date / Time fluticasone Allergy Unknown Skin Verified 06/03/21 20:31 Reaction salmeterol [Advair Diskus] Allergy Unknown Skin Verified 06/03/21 20:31 Reaction Sulfa (Sulfonamide Allergy Unknown Skin Verified 06/03/21 20:31 Antibiotics) Reaction Review of Systems Review of Systems: CONSTITUTIONAL: Denies fever, chills, or sweats. EYES: Denies visual changes, redness, or discharge. ENT: Denies rhinorrhea, congestion, sore throat, or otalgia. CARDIOVASCULAR: Denies chest pain, palpitations, or edema. RESPIRATORY: Denies cough or dyspnea. GASTROINTESTINAL: Denies abdominal pain, nausea, vomiting, or diarrhea. GENITOURINARY: Denies dysuria or hematuria. SKIN: Denies rash or itching. MUSCULOSKELETAL: Denies back pain, joint pain, or myalgia. NEUROLOGIC: Denies headache, numbness, dizziness, or weakness. PSYCHIATRIC: Denies anxiety or depression. All systems reviewed & are unremarkable except as noted in HPI and below PMFSH Past Medical History Medical History Anxiety Arthritis Asthma Chronic back pain Stenosis of the cervical and lumbar regions. Chronic obstructive pulmonary disease history of COPD with sleep apnea. Patient uses CPAP machine. Continue CPAP. 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 Bilateral knee arthroscopy. Bilateral carpal tunnel release. Left Achilles tendon repair. Right tibialis anterior repair. Left rotator cuff repair. Family History Family History Mother Diabetes mellitus Father Acute myocardial infarction, Onset Age: 78 Family history of Alzheimer's disease Sibling Family history of malignant neoplasm Other Family history of arthritis Family history of cardiovascular disease Hypertension Social History Social History Social History: Surrogate decision maker: Lulu Whaley, . Code status: Full code. Smoking packs per day: 1 Smoking cigarettes per day: 20.0 Years smoked: 30 Smoking pack-years: 30.00 Second hand tobacco smoke exposure: Yes Smoking end date: 08/18/18 Alcohol intake: current Alcohol use details: Drinks alcohol socially and in moderation. Substance use: never Substance use type: does not use Additional living arrangements comments: Lives with his in [place]. 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 Gender identity (if verbalized by the patient): Male Sexual Orientation (if Verbalized by the Patient): Straight or Heterosexual Spiritual care concerns: No Exam Narrative: GENERAL: Well-appearing, well-nourished,
[2021-06-03] MEDS: SODIUM CHLORIDE 0.9% IV 1,000 ML 999 ML IV CONT (21:52)
[2021-06-03] MEDS: MORPHINE SULFATE (*CRX) 4 MG/ML INJ IV PUSH (21:53)
[2021-06-03 22:13] LABS: Basophils Percent Auto 0.1 % (0.2-1.2); Eosinophils Absolute Auto 0.1 K/mm3 (0-0.3); Eosinophils Percent Auto 0.7 % (0-4.4); Hematocrit 43.7 % (42.0-52.0); Hemoglobin 14.5 g/dL (14.0-18.0); Immature Granulocyte Absolute 0.05 K/mm3 (0.00-0.031); Immature Granulocyte Percent A 0.4 % (0-0.5); Immature Platelet Fraction Pct 6.2 % (0.9-11.2); Lymphocytes Absolute Auto 1.59 K/mm3 (0.9-3.2); Lymphocytes Percent Auto 11.6 % (18.3-44.2); Mean Corpuscular HGB Conc 33.2 g/dl (32-36); Mean Corpuscular Hemoglobin 30.4 pg (26-34); Mean Corpuscular Volume 91.6 fl (80-100); Monocytes Absolute Auto 0.9 K/mm3 (0.1-0.6); Monocytes Percent Auto 6.7 % (2.6-8.5); Neutrophils Percent Auto 80.5 % (45.5-73.1); Platelet Count Result 131 k/mm3 (150-375); Red Blood Count 4.77 M/mm3 (4.6-6.20); Red Cell Distribution Width 13.3 % (11.5-14.5); White Blood Count 13.7 K/mm3 (4.5-10.0)
[2021-06-03 22:46] LABS: Alanine Aminotransferase 12 U/L (4-50); Albumin Level 4.1 g/dL (3.5-5.1); Alkaline Phosphatase 68 U/L (38-126); Anion Gap 6 mmol/L (8-16); Aspartate Amino Transferase 25 U/L (17-59); Bilirubin,Total 0.3 mg/dL (0.2-1.3); Blood Urea Nitrogen 17 mg/dL (9-20); Carbon Dioxide 25 mmol/L (22-30); Chloride 110 mmol/L (98-107); Estimated CRCL calculation 82 ml/min; Estimated Glomerular Filt Rate > 60; Glucose 117 mg/dL (65-110); Potassium 3.6 mmol/L (3.4-5.0); Sodium 141 mmol/L (137-145)
[2021-06-03 23:43] VITALS: BP 146/96; PULSE 80; RESP 19; O2SAT 98
[2021-06-04] MEDS: MORPHINE SULFATE (*CRX) 4 MG/ML INJ IV PUSH (00:20)
== END 2021-06-04 01:55 | disposition home or self-care (01) ==
PROVIDERS: Emergency Provider Emergency Medicine; PCP Family Medicine
DX: K11.5 Sialolithiasis (principal); E78.00 Pure hypercholesterolemia, unspecified; J44.9 Chronic obstructive pulmonary disease, unspecified; G47.33 Obstructive sleep apnea (adult) (pediatric); K21.9 Gastro-esophageal reflux disease without esophagitis; M10.9 Gout, unspecified; M19.90 Unspecified osteoarthritis, unspecified site; G62.9 Polyneuropathy, unspecified; Z87.442 Personal history of urinary calculi; F17.210 Nicotine dependence, cigarettes, uncomplicated
CPT/HCPCS: 36415; 70487; 80053; 85025; 85055; 96361; 96374; 96376; 99284; A9270; J2270; J7030; Q9967

== ENCOUNTER 2022-06-13 13:11 | Emergency (ER) | payer MEDICARE, OTHER, SELFPAY ==
--- NOTE | ~2022-06-13 | CT_ITS ---
EXAMINATION: CT lumbar spine wo con DATE: 06/13/2022 15:39 INDICATION: lumbar radiculopathy . TECHNIQUE: Computed tomography (CT) of the lumbar spine was performed without intravenous contrast. A utomated exposure control and iterative reconstruction technique were employed. The dose-length produ ct was 941.64 mGy-cm. COMPARISON: MRI lumbar spine 12/18/2017. FINDINGS: 5 nonrib-bearing lumbar-type vertebral bodies. Pedicles intact. Bilateral pars defects at L 5-S1. 12 mm anterolisthesis of L5 on S1. Otherwise normal vertebral body alignment. Vertebral body he ights preserved. Severe disc space narrowing and vacuum phenomenon at L4-5 and L5-S1. Multilevel face t sclerosis and hypertrophy. Severe bilateral neural foraminal narrowing at L4-5 and L5-S1. Bilateral SI joint degenerative change and partial fusion. Nonobstructive left lower pole renal calculus. Athe rosclerotic calcification. IMPRESSION: 1. No acute fracture or traumatic malalignment in the lumbar spine. 2. Grade 2 anterolisthesis at L5-S1, on a degenerative basis. 3. Severe degenerative disc disease and bilateral neural foraminal narrowing at L4-5 and L5-S1. 4. Multilevel facet arthropathy. Reviewed, dictated and finalized at location K.
[2022-06-13 13:27] VITALS: BP 150/95; PULSE 83; RESP 20; TEMP 36.4; O2SAT 99
--- NOTE | 2022-06-13 15:28 | ED.BACK ---
HPI - Back Pain/Injury General Chief Complaint: Back Pain/Injury Stated Complaint: back pain Time Seen by Provider: 06/13/22 15:14 History of Present Illness HPI Narrative: Pt has had mild back pain for the last several days but says overnight the pain got worse and now he has pain radiating down back of leg and on top of leg and has numbness on top of leg. Pt says the pain was much worse when he tried to lie flat and he had a lot of pain when he tried to move leg. Pt denies perineal parasthesia. Pt did said he wet himself a bit but it was more that he had to go really bad and couldn't get to bathroom because of his pain more than incontinence. Pt denies fever or trauma. Related Data Home Medications Medication Instructions Recorded Confirmed Immodium 1 cap PO BID 07/11/20 06/08/21 esomeprazole magnesium 40 mg 40 mg PO DAILY 07/11/20 06/08/21 capsule,delayed release gabapentin 300 mg capsule 600 mg PO BID 07/11/20 06/08/21 Allergies Allergy/AdvReac Type Severity Reaction Status Date / Time fluticasone Allergy Unknown Skin Verified 06/08/21 14:36 Reaction salmeterol [Advair Diskus] Allergy Unknown Skin Verified 06/08/21 14:36 Reaction Sulfa (Sulfonamide Allergy Unknown Skin Verified 06/08/21 14:36 Antibiotics) Reaction Review of Systems Review of Systems: All systems reviewed & are unremarkable except as noted in HPI and below PMFSH Past Medical History Medical History Anxiety Arthritis Asthma Chronic back pain Stenosis of the cervical and lumbar regions. Chronic obstructive pulmonary disease history of COPD with sleep apnea. Patient uses CPAP machine. Continue CPAP. 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 Bilateral knee arthroscopy. Bilateral carpal tunnel release. Left Achilles tendon repair. Right tibialis anterior repair. Left rotator cuff repair. Family History Family History Mother Diabetes mellitus Father Acute myocardial infarction, Onset Age: 78 Family history of Alzheimer's disease Sibling Family history of malignant neoplasm Other Family history of arthritis Family history of cardiovascular disease Hypertension Social History Social History Social History: Surrogate decision maker: Lulu Whaley, . Code status: Full code. Smoking packs per day: 1 Smoking cigarettes per day: 20.0 Years smoked: 30 Smoking pack-years: 30.00 Second hand tobacco smoke exposure: Yes Smoking end date: 08/18/18 Alcohol intake: current Alcohol use details: Drinks alcohol socially and in moderation. Substance use: never Substance use type: does not use Additional living arrangements comments: Lives with his in [place]. 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 Gender identity (if verbalized by the patient): Male Sexual Orientation (if Verbalized by the Patient): Straight or Heterosexual Spiritual care concerns: No Exam Const: General: cooperative, healthy appearing and no acute distress Nutritional Appearance: average body habitus Orientation/consciousness: patient oriented x3 Limitations: no limitations Neck: Neck: normal visual inspection Resp: Effort & Inspection: normal respiratory effort Auscultation: clear to auscultation bilaterally Cardio: Jugular venous distension: no JVD Palpation: normal PMI Rate: regular rate Rhythm: regular rhythm GI: Inspection: normal to inspection Auscultation: normal bowel sounds Back/Spine/Pelvis: Back: ba
[2022-06-13] MEDS: HYDROmorphone HCL INJ (*CRX) 1 MG/ML SYR IM (15:52)
[2022-06-13] MEDS: CYCLOBENZAPRINE HCL 10 MG TABLET PO (15:52)
[2022-06-13 17:04] VITALS: BP 137/97; PULSE 72; RESP 16; O2SAT 98
== END 2022-06-13 17:09 | disposition home or self-care (01) ==
PROVIDERS: Emergency Provider Emergency Medicine; PCP Internal Medicine
DX: M54.16 Radiculopathy, lumbar region (principal); S39.012A Strain of muscle, fascia and tendon of lower back, initial encounter; J44.9 Chronic obstructive pulmonary disease, unspecified; E78.00 Pure hypercholesterolemia, unspecified; K21.9 Gastro-esophageal reflux disease without esophagitis; M19.90 Unspecified osteoarthritis, unspecified site; M10.9 Gout, unspecified; G47.33 Obstructive sleep apnea (adult) (pediatric); G62.9 Polyneuropathy, unspecified; Z87.442 Personal history of urinary calculi; Z87.891 Personal history of nicotine dependence; X58.XXXA Exposure to other specified factors, initial encounter
CPT/HCPCS: 72131; 96372; 99284; A9270; J1170

== ENCOUNTER → 2022-07-06 12:14 | Outpatient (CLI) | payer OTHER, MEDICARE, SELFPAY ==
--- NOTE | ~2022-07-06 | XR_ITS ---
EXAM: XR hip LT 2V w AP pelvis DATE: 07/06/2022 12:32 HISTORY: M25.552 - Pain in left hip . COMPARISON: None available. FINDINGS: Normal mineralization. No fracture or dislocation. No lytic or blastic lesion. Degenerativ e change in the lumbar spine. Moderate left and mild right superior hip joint space narrowing. Bilate ral trochanteric and pelvic enthesopathy. No erosion or periosteal change. Soft tissues within normal limits. IMPRESSION: Moderate left and mild right hip osteoarthritis. Reviewed, dictated and finalized at location K.
== END ==
PROVIDERS: PCP Nurse Practitioner; Visit Provider Nurse Practitioner
DX: M16.0 Bilateral primary osteoarthritis of hip (principal)
CPT/HCPCS: 73502

== ENCOUNTER 2022-09-05 22:44 | Emergency (ER) | payer OTHER, MEDICARE, SELFPAY ==
--- NOTE | ~2022-09-05 | CT_ITS ---
EXAMINATION: CT abdomen pelvis w con DATE: 09/06/2022 07:22 INDICATION: Diarrhea. Fever. TECHNIQUE: Computed tomography (CT) of the abdomen and pelvis was performed with 100 mL Omnipaque 350 intravenous contrast. Automated exposure control and iterative reconstruction technique were employe d. The dose-length product was 896.78 mGy-cm. COMPARISON: CT abdomen and pelvis 09/13/2018 FINDINGS: The visualized portions of the lung bases demonstrate minimal atelectasis on the left. No p leural effusion. The heart size is normal. No pericardial effusion. There is diffuse hepatic steatosi s. There is chronic mild splenomegaly. The gallbladder, pancreas, adrenal glands, and right kidney ar e normal. There are 1 mm and 2 mm stones in left kidney. The prostate is mildly enlarged. The appendi x is normal. There is new wall thickening of distal ileum, which is small in caliber. There is a dila jose loop of small bowel proximal to this area. There are no pathologically enlarged lymph nodes. Ther e is no free intraperitoneal fluid. There is a right inguinal hernia containing fat. There are chroni c bilateral L5 pars defects. There is 7 mm anterolisthesis of L5 on S1. There is severe lumbar spondy losis. IMPRESSION: 1. New wall thickening of the distal ileum, consistent with infection versus Crohn disease. Small-ronaldo iber of this bowel may be transient or may be a stricture. A dilated loop of small bowel proximal to this area may be secondary to adynamic ileus or partial small bowel obstruction. Reviewed, dictated and finalized at location A. ING MANAGER IMPRESSION: 1. New wall thickening of the distal ileum, consistent with infection versus Cr ohn disease. Small-caliber of this bowel may be transient or may be a stricture . A dilated loop of small bowel proximal to this area may be secondary to adyna jania ileus or partial small bowel obstruction.
--- NOTE | ~2022-09-05 | XR_ITS ---
EXAMINATION: XR chest 1V portable DATE: 09/06/2022 06:04 INDICATION: Nausea and vomiting. Body aches. TECHNIQUE: A single frontal view of the chest was obtained. COMPARISON: Chest 2 views 11/13/2015 FINDINGS: There are mild airspace opacities in the lower lung zones. No pleural effusion or pneumotho rax. The heart size is normal. IMPRESSION: 1. Mild airspace opacities in the lower lung zones, consistent with atelectasis versus pneumonia. Reviewed, dictated and finalized at location A. HANDISE BUYER
[2022-09-05 22:49] VITALS: BP 154/102; PULSE 100; RESP 20; TEMP 36.9; O2SAT 96
[2022-09-05 23:43] LABS: Influenza A QL RT-PCR Negative (Negative); Influenza B QL RT-PCR Negative (Negative); RSV RNA, RT-PCR Negative (Negative); SARS-CoV-2 RNA PCR Negative
[2022-09-06 01:28] VITALS: BP 141/90; PULSE 88; RESP 18; TEMP 36.6; O2SAT 99
--- NOTE | 2022-09-06 05:22 | ECG_ITS ---
Measurements Intervals Peck Rate: 92 P: 72 SD: 153 QRS: 54 QRSD: 102 T: 40 QT: 366 QTc: 455 Interpretive Statements SINUS RHYTHM NO PREVIOUS ECG AVAILABLE FOR COMPARISON Electronically Signed On 09-06-2022 16:26:09 [employer] by Sukhdev Lizarraga M.D.
[2022-09-06] MEDS: ONDANSETRON INJ 4 MG/2 ML VIAL IV PUSH (05:55)
[2022-09-06] MEDS: FAMOTIDINE 20 MG/2 ML VIAL IV PUSH (05:56)
[2022-09-06] MEDS: IBUPROFEN 400 MG TABLET 800 MG PO (05:56)
[2022-09-06] MEDS: ACETAMINOPHEN 500 MG TABLET 1000 MG PO (05:56)
[2022-09-06] MEDS: SODIUM CHLORIDE 0.9% IV 1,000 ML 999 ML IV CONT (05:57)
[2022-09-06 06:05] LABS: Basophils Percent Auto 0.2 % (0.2-1.2); Eosinophils Percent Auto 0.4 % (0-4.4); Hematocrit 42.4 % (42.0-52.0); Hemoglobin 14.6 g/dL (14.0-18.0); Immature Granulocyte Absolute 0.04 K/mm3 (0.00-0.031); Immature Granulocyte Percent A 0.5 % (0-0.5); Immature Platelet Fraction Pct 3.1 % (0.9-11.2); Lymphocytes Absolute Auto 0.87 K/mm3 (0.9-3.2); Lymphocytes Percent Auto 10.5 % (18.3-44.2); Mean Corpuscular HGB Conc 34.4 g/dl (32-36); Mean Corpuscular Hemoglobin 32.2 pg (26-34); Mean Corpuscular Volume 93.6 fl (80-100); Mean Platelet Volume 9.9 fl (7.4-10.4); Monocytes Absolute Auto 0.7 K/mm3 (0.1-0.6); Monocytes Percent Auto 8.6 % (2.6-8.5); Neutrophils Absolute Auto 6.6 K/mm3 (1.3-6.7); Neutrophils Percent Auto 79.8 % (45.5-73.1); Platelet Count Result 145 k/mm3 (150-375); Red Blood Count 4.53 M/mm3 (4.6-6.20); Red Cell Distribution Width 14.1 % (11.5-14.5); White Blood Count 8.3 K/mm3 (4.5-10.0)
--- NOTE | 2022-09-06 06:11 | ED.GENADULT ---
HPI - General Adult General Chief complaint: Unspecified Stated complaint: Diarrhea, Headache, Body Aches Time Seen by Provider: 09/06/22 03:59 History of Present Illness HPI narrative: This is a 62-year-old male presents ED with a chief complaint of diarrhea. On monday the patient woke up from sleep at 3:00 a.m. and had profuse nonbloody diarrhea throughout the entire day. He also had a fever of 102.3 at this time. His symptoms later developed to into headache, body aches and fatigue. Patient does have a sick family member at home. Patient denies chest pain, difficulty breathing, urinary symptoms. Related Data Home Medications Medication Instructions Recorded Confirmed esomeprazole magnesium 40 mg 40 mg PO DAILY 07/11/20 07/06/22 capsule,delayed release gabapentin 300 mg capsule 600 mg PO BID 07/11/20 07/06/22 allopurinol 300 mg tablet 300 mg PO DAILY 07/06/22 07/06/22 folic acid 1 mg tablet 1 mg PO DAILY 07/06/22 07/06/22 methotrexate sodium 5 mg tablet 5 mg PO WEEKLY 07/06/22 07/06/22 Allergies Allergy/AdvReac Type Severity Reaction Status Date / Time salmeterol [Advair Diskus] Allergy Unknown Skin Verified 07/06/22 11:42 Reaction Sulfa (Sulfonamide Allergy Unknown Skin Verified 07/06/22 11:42 Antibiotics) Reaction Review of Systems Review of Systems: CONSTITUTIONAL: Denies night sweats. EYES: No eye pain ENT: Denies rhinorrhea CARDIOVASCULAR: Denies palpitations RESPIRATORY: Denies hemoptysis GASTROINTESTINAL: Denies hematemesis GENITOURINARY: Denies hematuria. SKIN: Denies rash MUSCULOSKELETAL: Denies myalgia. NEUROLOGIC: Denies weakness. PSYCHIATRIC: Denies delusions PMF Past Medical History Medical History Anxiety Arthritis Asthma Chronic back pain Stenosis of the cervical and lumbar regions. Chronic obstructive pulmonary disease history of COPD with sleep apnea. Patient uses CPAP machine. Continue CPAP. 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 Bilateral knee arthroscopy. Bilateral carpal tunnel release. Left Achilles tendon repair. Right tibialis anterior repair. Left rotator cuff repair. Family History Family History Mother Diabetes mellitus Father Acute myocardial infarction, Onset Age: 78 Family history of Alzheimer's disease Sibling Family history of malignant neoplasm Other Family history of arthritis Family history of cardiovascular disease Hypertension Social History Social History Social History: Surrogate decision maker: Lulu Whaley, . Code status: Full code. Smoking packs per day: 1 Smoking cigarettes per day: 20.0 Years smoked: 30 Smoking pack-years: 30.00 Smoking status: Former smoker Tobacco type: e-cigarettes/vaping Second hand tobacco smoke exposure: Yes Smoking end date: 08/18/18 Alcohol intake: current Alcohol use details: Drinks alcohol socially and in moderation. Substance use: never Substance use type: does not use Additional living arrangements comments: Lives with his in [place]. 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 Gender identity (if verbalized by the patient): Male Sexual Orientation (if Verbalized by the Patient): Straight or Heterosexual Spiritual care concerns: No Exam Narrative: APPEARANCE: No apparent distress. patient is polite and friendly during the interview. Head: atraumatic. EYES: EOMI, NOSE: Atraumatic NECK: Trachea midline RESPIRATORY: No increased rate of breathing, CTAB CARDIOVASC
[2022-09-06 06:14] LABS: Alanine Aminotransferase 26 U/L (6-50); Albumin Level 4.6 g/dL (3.5-5.1); Alkaline Phosphatase 72 U/L (38-126); Anion Gap 7 mmol/L (8-16); Aspartate Amino Transferase 34 U/L (17-59); Blood Urea Nitrogen 14 mg/dL (9-20); Calcium 9.2 mg/dL (8.4-10.2); Carbon Dioxide 26 mmol/L (22-30); Chloride 106 mmol/L (98-107); Estimated CRCL calculation 104 ml/min; Estimated Glomerular Filt Rate > 60; Glucose 113 mg/dL (65-110); Lipase 35 U/L (23-300); Magnesium 2.2 mg/dL (1.6-2.3); Potassium 3.8 mmol/L (3.4-5.0); Sodium 139 mmol/L (137-145)
[2022-09-06 07:24] VITALS: BP 152/97; PULSE 89; O2SAT 98
[2022-09-06 08:50] VITALS: PULSE 88; O2SAT 99
== END 2022-09-06 08:53 | disposition home or self-care (01) ==
PROVIDERS: Emergency Provider Emergency Medicine; PCP Emergency Medicine
DX: R19.7 Diarrhea, unspecified (principal); Z20.822 Contact with and (suspected) exposure to COVID-19; J44.9 Chronic obstructive pulmonary disease, unspecified; E78.00 Pure hypercholesterolemia, unspecified; K21.9 Gastro-esophageal reflux disease without esophagitis; M10.9 Gout, unspecified; M19.90 Unspecified osteoarthritis, unspecified site; G47.33 Obstructive sleep apnea (adult) (pediatric); G62.9 Polyneuropathy, unspecified; F41.9 Anxiety disorder, unspecified; F32.A Depression, unspecified; Z87.442 Personal history of urinary calculi; Z89.021 Acquired absence of right finger(s); Z87.891 Personal history of nicotine dependence
CPT/HCPCS: 36415; 71045; 74177; 80053; 83690; 83735; 85025; 85055; 87637; 93005; 96361; 96374; 96375; 99284; A9270; J2405; J7030; Q9967

== ENCOUNTER → 2022-11-10 13:35 | Outpatient (CLI) | payer MEDICARE, OTHER, SELFPAY ==
--- NOTE | ~2022-11-10 | MR_ITS ---
EXAMINATION: MR knee RT wo con DATE: 11/10/2022 14:08 INDICATION: Right knee pain TECHNIQUE: Magnetic resonance imaging (MRI) of the right knee was performed without intravenous contr ast. Sequences included coronal PD-weighted FSE, coronal PD-weighted FS FSE, sagittal T2-weighted FS E, sagittal PD-weighted FS FSE and axial PD weighted fat saturated FSE. COMPARISON: None. FINDINGS: Medial compartment: Complex tear of the body and posterior horn of the medial meniscus which includes a radial tear plane which extends to the periphery at the junction of the body and posterior horn. Deep chondral ulcerat ion along the central weightbearing medial femoral condyle with medial sided mild cystic change and s mall subchondral osteophytes. Mild partial-thickness cartilage loss and chondral surface regularity a long the posterior medial tibial plateau and anterior weightbearing medial femoral condyle. Small to moderate size marginal osteophytes along the central to posterior weightbearing medial femoral condyl e. Lateral compartment: Longitudinal horizontal tear extending to the superior articular surface of the anterior horn and ant erior body of the lateral meniscus. Tarsal thickness chondral ulceration and deep fissuring at the ce ntral weightbearing lateral femoral condyle with tiny focus of underlying edema-like signal change. L ess severe shallow chondral surface regularity along the anterior weightbearing lateral femoral condy le. Patellofemoral compartment: Partial-thickness chondral ulceration with deep fissuring at the medial patellar facet and patellar a pical ridge. Mild partial-thickness chondral fissuring at the lateral patellar facet. Partial-thickne ss chondral ulceration with mild underlying cortical irregularity and tiny central subchondral osteop hytes at the inferior aspect of the medial trochlea. Deep chondral fissuring without degenerative sub chondral changes at the central to inferior aspect of the trochlear groove. Lateral trochlea is relat ively spared. Ligaments and tendons: Anterior and posterior cruciate ligaments are normal. The medial collateral ligament and fibular joseph ateral ligament complex are normal. Small enthesophytes and mild tendinopathy patellar insertion of t he distal quadriceps tendon. The patellar tendon is normal. The visualized medial and lateral hamstri ng tendons as well as the iliotibial band are normal. Fluid: Small right knee joint effusion at the suprapatellar pouch. No loose osteochondral bodies identified. Small Bah's cyst. Osseous/other: Bone alignment is normal. No fracture or pathologic marrow replacing process. There is additional mil d osteoarthritis at the proximal tibiofibular joint. Small intra and extra osseous ganglion cysts janette ng the posterior margin of the head of the fibula. Prepatellar soft tissue swelling with mild soft ti ssue edema but without discrete bursal fluid collection. IMPRESSION: 1. Medial and lateral meniscal tears, the former complex. 2. Mild tricompartmental osteoarthritis with regions of moderate and high-grade chondromalacia in all 3 compartments. 3. Mild osteoarthritis at the proximal tibiofibular articulation. 4. Small right knee joint effusion. Reviewed, dictated and finalized at location A. 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
== END ==
PROVIDERS: PCP Emergency Medicine; Visit Provider Orthopaedic Surgery
DX: S83.271A Complex tear of lateral meniscus, current injury, right knee, initial encounter (principal); S83.231A Complex tear of medial meniscus, current injury, right knee, initial encounter; M17.11 Unilateral primary osteoarthritis, right knee; M25.461 Effusion, right knee; T14.90XA Injury, unspecified, initial encounter
CPT/HCPCS: 73721

== ENCOUNTER → 2022-11-10 13:37 | Outpatient (CLI) | payer MEDICARE, OTHER, SELFPAY ==
--- NOTE | ~2022-11-10 | CT_ITS ---
EXAMINATION: CT lung screening DATE: 11/10/2022 14:16 INDICATION: History of tobacco abuse. Lung cancer screening. TECHNIQUE: Computed tomography (CT) of the chest was performed without intravenous contrast. The dose -length product was 226.15 mGy-cm. Automated exposure control and iterative reconstruction technique were employed. COMPARISON: CT dated 02/26/2021 FINDINGS: Heart size normal. No significant pleural or pericardial effusion. There is a retroaortic r ight subclavian artery, normal variant. No thoracic lymphadenopathy. Punctate nonobstructing left evelin al stone partially visualized on the last image. No endobronchial lesions. There is a 2 mm right uppe r lobe nodule. There is a 2 mm left upper lobe nodule. No pneumothorax. No endobronchial lesions. No focal airspace consolidation. Mild thoracic spondylosis. No focal lytic or blastic lesions. IMPRESSION: 1. Lung-RADS category 2: Benign appearance or behavior. Continue annual screening with noncontrast lo w-dose chest CT in 12 months. Reviewed, dictated and finalized at location A. ONS ADVISOR IMPRESSION: 1. Lung-RADS category 2: Benign appearance or behavior. Continue annual screeni ng with noncontrast low-dose chest CT in 12 months.
== END ==
PROVIDERS: PCP Emergency Medicine; Visit Provider Emergency Medicine
DX: Z12.2 Encounter for screening for malignant neoplasm of respiratory organs (principal); Z87.891 Personal history of nicotine dependence
CPT/HCPCS: 71271

== ENCOUNTER → 2023-07-17 15:17 | Outpatient (CLI) | payer MEDICARE, OTHER, SELFPAY ==
--- NOTE | ~2023-07-17 | US_ITS ---
EXAMINATION: US soft tissue head and neck DATE: 07/17/2023 15:38 INDICATION: Left posterior neck lump. TECHNIQUE: Multiple grayscale and Doppler ultrasound images of the head and neck were obtained. COMPARISON: Neck CT 06/02/2021 FINDINGS: In the left posterior neck, there is a 6.2 x 3.5 x 5.0 cm mass of mixed echogenicity correl ating with an intramuscular lipoma by CT. IMPRESSION: 1. 6.2 cm intramuscular lipoma in left posterior neck. Reviewed, dictated and finalized at location E.
== END ==
PROVIDERS: PCP Emergency Medicine; Visit Provider Emergency Medicine
DX: D17.9 Benign lipomatous neoplasm, unspecified (principal); R22.1 Localized swelling, mass and lump, neck
CPT/HCPCS: 76536

== ENCOUNTER → 2023-07-24 13:49 | Outpatient (CLI) | payer MEDICARE, OTHER, SELFPAY ==
--- NOTE | ~2023-07-24 | MR_ITS ---
EXAMINATION: MR lumbar spine wo con DATE: 07/24/2023 14:18 INDICATION: Low back pain. Lumbar radiculopathy. TECHNIQUE: Magnetic resonance imaging (MRI) of the lumbar spine was performed without intravenous con trast. Sequences included sagittal T2-weighted FSE, sagittal T2-weighted FS FSE, sagittal T1-weighted FSE, and axial T2-weighted FSE. COMPARISON: Lumbar spine MRI 12/18/2017 FINDINGS: There is 10 degrees dextroscoliosis of lumbar spine. There are chronic bilateral L5 pars de fects. There is 13 mm anterolisthesis of L5 on S1. There is chronic 1/5 loss of L5 vertebral body pos teriorly. There is mildly decreased disc height at L2-L3, moderately decreased disc height at L3-L4, and severely decreased disc height at L4-L5 and L5-S1. The distal spinal cord signal intensity is nor mal. The conus medullaris is at T12-L1. The following disc levels are specifically discussed: L1-L2: The disc is bulging. There is severe bilateral facet joint osteoarthritis. There is mild bilat eral neural foraminal stenosis. There is mild central canal stenosis. L2-L3: The disc is bulging. There is moderate bilateral facet joint osteoarthritis. There is mild debbie ateral neural foraminal stenosis. There is mild central canal stenosis. L3-L4: The disc is bulging and has an annular fissure. There is moderate right and severe left facet joint osteoarthritis. There is moderate bilateral neural foraminal stenosis. There is mild central ca nal stenosis. There is moderate stenosis of the lateral recesses. L4-L5: The disc is bulging and has an annular fissure. There is severe bilateral facet joint osteoart hritis. There is moderate bilateral neural foraminal stenosis. There is mild central canal stenosis. L5-S1: The disc is bulging. There is mild bilateral facet joint osteoarthritis. There is moderate debbie ateral neural foraminal stenosis. There is no central canal stenosis. IMPRESSION: 1. Severe lumbar spondylosis, worsened from 12/18/2017. 2. Chronic bilateral L5 pars defects with stable grade 2 anterolisthesis of L5 on S1. Reviewed, dictated and finalized at location E.
== END ==
PROVIDERS: PCP Emergency Medicine; Visit Provider Emergency Medicine
DX: M47.26 Other spondylosis with radiculopathy, lumbar region (principal)
CPT/HCPCS: 72148

== ENCOUNTER 2023-09-12 10:00 | Outpatient (RCR) | payer MEDICARE, OTHER, SELFPAY ==
--- NOTE | 2023-08-10 16:47 | OPREHPOC ---
Outpatient Therapy Plan of Care This is a Multidisciplinary Plan of Care that may contain components documented by all disciplines (PT, OT, and ST.) PT Problem 1 PT Problem #1 Knowledge Deficit PT Goal 1 Goal Pt to be IND with issued HEP Target Visit 8 PT Problem 2 PT Problem #2 Pain PT Goal 1 Goal Pt to report back pain no greater than 4/10 in the last week Target Visit 8 PT Goal 2 Goal Pt to report 75% improvement in overall symptoms. Target Visit 8 PT Problem 3 PT Problem #3 Impaired Functional Mobil PT Goal 1 Goal Pt to be able to carry groceries in without an increase in symptoms. Target Visit 8 PT Goal 2 Goal Pt to be able to lift and carry 30lb from ground level without an increase in symptoms. Target Visit 8 PT Problem 4 PT Problem #4 Impaired Sensation PT Goal 1 Goal Pt to decline radicular symptoms in the last week. Target Visit 8
--- NOTE | 2023-08-10 16:47 | PTOPEVAL1 ---
Assessment and note entered by Aranza Goldberg, PT, DPT Evaluation Information Assessment Status Evaluation Diagnosis radiculopathy, lumbar region (M54.25) Onset chronic Subjective Information Pt states he has had bad back pain for a very long time. He states it is achy /. He feels weakness and fatigue generally throughout his day. He states he will get sharp and shooting pains down his leg if he moves the wrong way. He states the longer he is up and on his feet he feels weaker and weaker. He states any compression on his low back, even from a belt will cause an increase in pain. 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 Reported Pain Level Pain Score 5: Self Report Assessment PT Clinical Summary Almas presents to therapy today for his initial evaluation with a diagnosis of lumbar radiculopathy with debbie peripheral symptoms. Today he demonstrates mild decrease in active lumbar ROM in all direction, limited by pain, he also has hip weakness debbie. He demonstrates decreased intervertebral spinal motion and lumbar paraspinal tightness. Skilled therapy services are indicated to improve core strength, improve body mechanics, improve mobility, and to promote unlimited functional mobility. Oswestry: 28/50, 56% disability Plan of Care Interventions Electrical Stimulation,Gait Training,Hot Pack/Cold Pack,Manual Therapy,Mechanical Traction,Neuro Re- education,Patient/Caregiver Educati,Therapeutic Activities,Therapeutic Exercise PT Services Indicated Yes Treatment Frequency and 2x/wk for 8 visits Duration These treatments will address the objective and functional deficits as defined above. The patient will be advanced safely and appropriately in order for the patient to progress towards his/her prior level of function. Additional exercises will be introduced and as well as a comprehensive home exercise program upon discharge, if needed, ?to ensure carryover of functional gains achieved in the clinic. This treatment plan has been reviewed and agreement upon by the patient.
--- NOTE | 2023-09-12 10:58 | PTOPPROG ---
Assessment and note entered by Aranza Goldberg, PT, DPT Evaluation Information Assessment Status Progress Diagnosis radiculopathy, lumbar region (M54.25) Onset chronic Subjective Information Pt states he has been trying to incorporate the things he has learned in therapy into his everyday life. He states his back is a little bit better since starting therapy. He states he has learned how to modify his positioning to limit his pain. Pt states he can also wash dishes now without an increase in symptoms, or can modify his position to where he can eliminate his pain. Assessment PT Clinical Summary Almas presents to therapy today for his progress report following 7 visits of skilled therapy to treat his diagnosis of lumbar radiculopathy with debbie peripheral symptoms. Today he demonstrates improved active lumbar ROM with decreased pain reports during. He demonstrates improved functional core strength and body awareness with functional movements. His HEP was progressed today . He plans to follow up in a month if needed. If he is still doing well in a month he will be discharged at that time. Plan of Care Interventions Electrical Stimulation,Gait Training,Hot Pack/Cold Pack,Manual Therapy,Mechanical Traction,Neuro Re- education,Patient/Caregiver Educati,Therapeutic Activities,Therapeutic Exercise PT Services Indicated Yes Treatment Frequency and follow up in 1 month if needed Duration These treatments will address the objective and functional deficits as defined above. The patient will be advanced safely and appropriately in order for the patient to progress towards his/her prior level of function. Additional exercises will be introduced and as well as a comprehensive home exercise program upon discharge, if needed, ?to ensure carryover of functional gains achieved in the clinic. This treatment plan has been reviewed and agreement upon by the patient.
--- NOTE | 2023-10-23 14:00 | PTOPDC ---
Assessment and note entered by Aranza Goldberg, PT, DPT Evaluation Information Assessment Status Discharge - Pt Not Present Diagnosis radiculopathy, lumbar region (M54.25) Onset chronic Subjective Information Called and followed up with pt. He states he is doing well and does not need to return to therapy. Assessment PT Clinical Summary Almas was evaluated on 08/10/23 and completed 6 visits through 09/12/23. He wanted to try his HEP for a month and see how he progress. He is still doing well and will therefore be discharged at this time.
== END 2023-10-23 14:40 | disposition home or self-care (01) ==
LOC: ANHGOSHPT 10:00
PROVIDERS: PCP Emergency Medicine; Visit Provider Emergency Medicine
DX: M54.16 Radiculopathy, lumbar region (principal)
CPT/HCPCS: 97012; 97014; 97110; 97140; 97161; 97530; G0283

== ENCOUNTER 2023-10-20 12:43 | Emergency (ER) | payer MEDICARE, OTHER, SELFPAY ==
--- NOTE | ~2023-10-20 | XR_ITS ---
EXAMINATION: XR chest 1V portable 10/20/2023 14:06 INDICATION: Left-sided chest pain PROCEDURE: AP portable chest COMPARISON: Comparison to multiple prior studies sequentially, with oldest reviewed study dated 01/18. FINDINGS: The lungs are clear. The cardiomediastinal silhouette is within normal limits. There are no pleural effusions. There is no pneumothorax suspected. IMPRESSION: 1: NO ACUTE CARDIOPULMONARY DISEASE. Reviewed, dictated and finalized at location B. [facility] NURSE
--- NOTE | 2023-10-20 12:43 | ECG_ITS ---
Measurements Intervals [place] Rate: 90 P: 71 [place]: 154 QRS: 65 QRSD: 100 T: 58 QT: 354 QTc: 433 Interpretive Statements SINUS RHYTHM NORMAL ECG COMPARED TO ECG 09/06/2022 05:45:58 NO SIGNIFICANT CHANGES Electronically Signed On 10-20-2023 12:55:01 OLEOMARGARINE MAKER by Chinedu Mcwilliams D.O.
[2023-10-20 12:52] VITALS: BP 137/97; PULSE 99; RESP 18; TEMP 37.1; O2SAT 99
[2023-10-20 13:02] LABS: Basophils Percent Auto 0.1 % (0.2-1.2); Eosinophils Absolute Auto 0.1 K/mm3 (0-0.3); Eosinophils Percent Auto 1.3 % (0-4.4); Hemoglobin 15.7 g/dL (14.0-18.0); Immature Granulocyte Absolute 0.02 K/mm3 (0.00-0.031); Immature Granulocyte Percent A 0.3 % (0-0.5); Lymphocytes Absolute Auto 1.99 K/mm3 (0.9-3.2); Lymphocytes Percent Auto 25.8 % (18.3-44.2); Mean Corpuscular HGB Conc 33.4 g/dl (32-36); Mean Corpuscular Volume 92.7 fl (80-100); Mean Platelet Volume 10.5 fl (7.4-10.4); Monocytes Absolute Auto 0.5 K/mm3 (0.1-0.6); Monocytes Percent Auto 6.6 % (2.6-8.5); Neutrophils Absolute Auto 5.1 K/mm3 (1.3-6.7); Neutrophils Percent Auto 65.9 % (45.5-73.1); Platelet Count Result 149 k/mm3 (150-375); Red Blood Count 5.07 M/mm3 (4.6-6.20); Red Cell Distribution Width 13.1 % (11.5-14.5); White Blood Count 7.7 K/mm3 (4.5-10.0)
[2023-10-20 13:15] LABS: Alanine Aminotransferase 27 U/L (6-50); Albumin Level 4.6 g/dL (3.5-5.1); Alkaline Phosphatase 69 U/L (38-126); Anion Gap 8 mmol/L (8-16); Aspartate Amino Transferase 32 U/L (17-59); Blood Urea Nitrogen 14 mg/dL (9-20); Calcium 9.6 mg/dL (8.4-10.2); Carbon Dioxide 28 mmol/L (22-30); Chloride 103 mmol/L (98-107); Estimated CRCL calculation 79 ml/min; Estimated Glomerular Filt Rate > 60; Glucose 131 mg/dL (65-110); Lipase 60 U/L (23-300); Potassium 3.8 mmol/L (3.4-5.0); Sodium 139 mmol/L (137-145)
[2023-10-20 13:19] LABS: INR 0.9; Prothrombin Time 12.6 Seconds (11.1-14.7)
[2023-10-20 13:20] LABS: Partial Thromboplastin Time 24.8 SECONDS (22.3-36.8)
[2023-10-20 13:25] LABS: Troponin I < 0.012 ng/mL (0.000-0.034)
--- NOTE | 2023-10-20 13:51 | ED.CHESTPAIN ---
HPI - Chest Pain General Chief Complaint: Chest Pain Stated Complaint: chest pain Time Seen by Provider: 10/20/23 13:50 Source: patient Mode of arrival: ambulatory Limitations: no limitations History of Present Illness HPI narrative: oRland is a 63-year-old male patient presenting to the ER today with complaints of intermittent chest pain last night-reports he woke up twice with left-sided chest pain. He reports he is not currently having any chest pain. States he has had to sleep without his CPAP machine for the past 2 nights as he is supposed to be getting a new CPAP machine and they told him not to use the CPAP machine until he gets the new machine. He reports pain comes and goes. Does feel like he has more of a sore throat due to snoring. Related Data Home Medications Medication Instructions Recorded Confirmed esomeprazole magnesium 40 mg 40 mg PO DAILY 07/11/20 07/26/23 capsule,delayed release gabapentin 300 mg capsule 600 mg PO BID 07/11/20 07/26/23 allopurinol 300 mg tablet 300 mg PO DAILY 07/06/22 07/26/23 folic acid 1 mg tablet 1 mg PO DAILY 07/06/22 07/26/23 methotrexate sodium 5 mg tablet 5 mg PO WEEKLY 07/06/22 07/26/23 tramadol 50 mg tablet 50 mg PO Q6H 09/12/22 07/26/23 Allergies Allergy/AdvReac Type Severity Reaction Status Date / Time salmeterol [Advair Diskus] Allergy Unknown Skin Verified 10/20/23 12:45 Reaction Sulfa (Sulfonamide Allergy Unknown Skin Verified 10/20/23 12:45 Antibiotics) Reaction Review of Systems Review of Systems: Pertinent positives per HPI. Patient denies any fever, chills, rash, headache, visual changes, dizziness, cough, runny nose, sore throat, shortness of breath, palpitations, nausea, vomiting, diarrhea, constipation, abdominal pain, or any urinary issues. [facility] Past Medical History Medical History Anxiety Arthritis Asthma Chronic back pain Stenosis of the cervical and lumbar regions. Chronic obstructive pulmonary disease history of COPD with sleep apnea. Patient uses CPAP machine. Continue CPAP. 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 Bilateral knee arthroscopy. Bilateral carpal tunnel release. Left Achilles tendon repair. Right tibialis anterior repair. Left rotator cuff repair. Family History Family History Mother Diabetes mellitus Father Acute myocardial infarction, Onset Age: 78 Family history of Alzheimer's disease Sibling Family history of malignant neoplasm Other Family history of arthritis Family history of cardiovascular disease Hypertension Social History Social History Social History: Surrogate decision maker: Lulu Whaley, . Code status: Full code. Smoking packs per day: 1 Smoking cigarettes per day: 20.0 Years smoked: 30 Smoking pack-years: 30.00 Smoking status: Former smoker (quit a couple of years ago. No vaping.) Tobacco type: e-cigarettes/vaping Second hand tobacco smoke exposure: Yes Smoking end date: 08/18/18 Alcohol intake: current Alcohol use details: Drinks alcohol socially and in moderation. Substance use: never Substance use type: does not use Lack of Transportation: No Lack of Food: Never True Current Housing: I Have Housing Concerned About Future Housing: No Difficulty Paying Gas/Electric Bills: No Difficulty Paying for Meds: No Currently Unemployed: No Education: Trade/Vocational Certificate Difficulty w/ Childcare or Family Care: No Additional living arrangements comments: Lives with his i
[2023-10-20 14:00] VITALS: BP 135/99; PULSE 71; PULSE 92; RESP 16; TEMP 36.4; TEMP 36.6; O2SAT 100; O2SAT 99
[2023-10-20 14:16] LABS: D Dimer 0.42 ug/mL (<0.48)
[2023-10-20 14:27] LABS: NT Pro B Type Natriuretic Pept < 20 pg/mL (19.9-100)
[2023-10-20 15:00] VITALS: BP 121/85; PULSE 86; RESP 16; TEMP 36.6; O2SAT 98
[2023-10-20 16:38] LABS: Troponin I < 0.012 ng/mL (0.000-0.034)
--- NOTE | 2023-10-20 16:42 | ECG_ITS ---
Measurements Intervals [place] Rate: 76 P: 58 [place]: 161 QRS: 44 QRSD: 101 T: 43 QT: 390 QTc: 439 Interpretive Statements SINUS RHYTHM BASELINE ARTIFACT- III, AVL NORMAL ECG COMPARED TO ECG 10/20/2023 12:50:20 NO SIGNIFICANT CHANGES Electronically Signed On 10-20-2023 16:48:40 SURVEILLANCE DUAL RATE OFFICER by Chinedu Mcwilliams D.O.
[2023-10-20 16:53] VITALS: BP 122/81; PULSE 85; RESP 16; TEMP 36.6; O2SAT 96
[2023-10-20 17:21] VITALS: PULSE 80
== END 2023-10-20 17:15 | disposition home or self-care (01) ==
PROVIDERS: Emergency Medicine; Emergency Provider Nurse Practitioner Family; PCP Emergency Medicine
DX: R07.89 Other chest pain (principal); G47.33 Obstructive sleep apnea (adult) (pediatric); J44.9 Chronic obstructive pulmonary disease, unspecified; E78.00 Pure hypercholesterolemia, unspecified; K21.9 Gastro-esophageal reflux disease without esophagitis; M19.90 Unspecified osteoarthritis, unspecified site; Z87.442 Personal history of urinary calculi; Z87.891 Personal history of nicotine dependence; Z89.021 Acquired absence of right finger(s)
CPT/HCPCS: 36415; 71045; 80053; 83690; 83880; 84484; 85025; 85380; 85610; 85730; 93005; 99284

== ENCOUNTER 2023-10-23 08:10 | Outpatient (CLI) | payer MEDICARE, OTHER, SELFPAY ==
[2023-10-31 19:01] VITALS: BMI 28.8
--- NOTE | 2023-10-31 19:01 | WPDSLEEPSTUD ---
Sleep Study Date of Study: 10/23/23 Ordering Provider: Gabe Flynn MD Interpreting Physician: Debbi Carroll, Sleep Study Type: Polysomnogram Height: 1.73 m Weight: 86.183 kg Body Mass Index: 28.8 Neck Circumference (inches): 17 [place]: 13 Reason for Sleep Study Needed to have updated study to get a new machine Sleep History The patient is a 63-year-old male with anxiety, depression, asthma, chronic back pain, GERD, gout, hyperlipidemia, peripheral neuropathy, total I go, history of tobacco use and previously diagnosed sleep apnea on CPAP that had a sleep study ordered by his primary care physician in order to get new supplies he frequently awakens from sleep short of breath. He rarely awakens at night with heartburn, belching or cough. He constantly snores loudly enough that others complain. He occasionally has trouble sleeping when he has a cold. He occasionally wakes up gasping for air throughout the night. He constantly has breathing problems at night observed by himself or others. He frequently sweats excessively at night. He frequently has heart palpitations or irregular heartbeats during the night. He occasionally falls asleep during the day but never while driving. He denies cataplexy. He frequently has trouble at school or work due to sleepiness. He rarely feels unable to move while waking up or falling asleep. He frequently experiences vivid dreamlike scenes upon awakening or falling asleep. He rarely feels afraid of going to sleep. He frequently has nightmares and occasionally remembers his dreams. He denies having thoughts racing through his mind. He rarely feels sad or depressed. He occasionally has anxiety. He rarely has muscular tension. He occasionally notices parts of his body jerk. Frequently kicks during the night. He occasionally has crawling and aching feelings in his legs and occasionally has leg pain during the night. He constantly grinds his teeth during sleep but rarely awakens with morning jaw pain. He is frequently bothered by pain during the day and occasionally awakened by pain during the night. He constantly wakes up feeling stiff in the morning. He constantly wakes up with sore or achy muscles. He occasionally wakes up with pain in the neck, spine and other joints. He goes to bed at 11:30 p.m. on weekdays and at night weekends. It takes him 15-20 minutes to fall asleep. He wakes up 2-3 times throughout the night for unknown reasons. He is able to fall back asleep within a few minutes. He wakes up at 9:00 a.m. on both weekdays and weekends. He typically gets 8-9 hours of sleep per night. He will stay in bed for 5 minutes after waking up in the morning. He currently lives with his . He denies consuming any caffeinated beverages within 2 hours of bedtime. He denies engaging in physical exercise before bedtime. He denies reading and watching television before falling asleep. He denies taking naps in afternoon or the evening. He consumes 12 oz of caffeinated beverage per day. He quit smoking cigarettes 2 years ago. He denies alcohol and recreational drug PMFSH Past Medical History Medical History Anxiety Arthritis Asthma Chronic back pain Stenosis of the cervical and lumbar regions. Chronic obstructive pulmonary disease history of COPD with sleep apnea. Patient uses CPAP machine. Continue CPAP. 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 Bilateral knee arthroscopy. Bilateral carpal tunnel release. Left Achilles tendon repair. Right tibialis anterior repair. Left rotator cuff repair. Family History Family History (Reviewed 10/31
== END 2023-10-24 07:11 | disposition home or self-care (01) ==
LOC: ANHCSM 08:11
PROVIDERS: PCP Emergency Medicine; Visit Provider Emergency Medicine
DX: R06.83 Snoring (principal); G47.33 Obstructive sleep apnea (adult) (pediatric); Z99.89 Dependence on other enabling machines and devices
CPT/HCPCS: 95810

== ENCOUNTER 2023-12-26 07:19 | Outpatient (CLI) | payer MEDICARE, OTHER, SELFPAY ==
[2023-12-27 14:58] VITALS: BMI 28.8
--- NOTE | 2023-12-27 14:58 | WPDHOMESLEEP ---
Sleep Study - Home Unattended Date of Study: 12/26/23 Ordering Provider: Gabe Flynn MD Interpreting Provider: Debbi Carroll, DO Home Sleep Study Type: Watch PAT Height: 1.73 m Weight: 86.183 kg Body Mass Index: 28.8 Neck Circumference (inches): 17 [place]: 14 Reason for Sleep Study Needs new CPAP equipment Sleep History The patient is a 63-year-old male with anxiety, depression, asthma, chronic back pain, GERD, gout, hyperlipidemia, peripheral neuropathy, total I go, history of tobacco use and previously diagnosed sleep apnea on CPAP that had a sleep study ordered by his primary care physician in order to get new supplies he frequently awakens from sleep short of breath.? He rarely awakens at night with heartburn, belching or cough.? He constantly snores loudly enough that others complain.? He occasionally has trouble sleeping when he has a cold.? He occasionally wakes up gasping for air throughout the night.? He constantly has breathing problems at night observed by himself or others.? He frequently sweats excessively at night.? He frequently has heart palpitations or irregular heartbeats during the night.? He occasionally falls asleep during the day but never while driving.? He denies cataplexy.? He frequently has trouble at school or work due to sleepiness.? He rarely feels unable to move while waking up or falling asleep.? He frequently experiences vivid dreamlike scenes upon awakening or falling asleep.? He rarely feels afraid of going to sleep.? He frequently has nightmares and occasionally remembers his dreams.? He denies having thoughts racing through his mind.? He rarely feels sad or depressed.? He occasionally has anxiety.? He rarely has muscular tension.? He occasionally notices parts of his body jerk.? Frequently kicks during the night.? He occasionally has crawling and aching feelings in his legs and occasionally has leg pain during the night.? He constantly grinds his teeth during sleep but rarely awakens with morning jaw pain.? He is frequently bothered by pain during the day and occasionally awakened by pain during the night.? He constantly wakes up feeling stiff in the morning.? He constantly wakes up with sore or achy muscles.? He occasionally wakes up with pain in the neck, spine and other joints.? He goes to bed at 11:30 p.m. on weekdays and at night weekends.? It takes him 15-20 minutes to fall asleep.? He wakes up 2-3 times throughout the night for unknown reasons.? He is able to fall back asleep within a few minutes.? He wakes up at 9:00 a.m. on both weekdays and weekends.? He typically gets 8-9 hours of sleep per night.? He will stay in bed for 5 minutes after waking up in the morning.? He currently lives with his .? He denies consuming any caffeinated beverages within 2 hours of bedtime.? He denies engaging in physical exercise before bedtime.? He denies reading and watching television before falling asleep.? He denies taking naps in afternoon or the evening.? He consumes 12 oz of caffeinated beverage per day.? He quit smoking cigarettes 2 years ago.? He denies alcohol and recreational drug use. [facility] Past Medical History Medical History Anxiety Arthritis Asthma Chronic back pain Stenosis of the cervical and lumbar regions. Chronic obstructive pulmonary disease history of COPD with sleep apnea. Patient uses CPAP machine. Continue CPAP. 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 Bilateral knee arthroscopy. Bilateral carpal tunnel release. Left Achilles tendon repair. Right tibialis anterior repair. Left rotator cuff repair. Family History Family History (Reviewed 12/27/23
== END 2023-12-27 13:41 | disposition home or self-care (01) ==
PROVIDERS: PCP Emergency Medicine; Visit Provider Emergency Medicine
DX: G47.33 Obstructive sleep apnea (adult) (pediatric) (principal); Z99.89 Dependence on other enabling machines and devices
CPT/HCPCS: 95800; 95806

== ENCOUNTER 2024-02-15 12:50 | Outpatient (CLI) | payer MEDICARE, OTHER, SELFPAY ==
--- NOTE | ~2024-02-15 | CT_ITS ---
EXAMINATION: CT lung screening DATE: 02/15/2024 13:04 INDICATION: Personal history of nicotine dependence. Lung cancer screening. TECHNIQUE: Computed tomography (CT) of the chest was performed without intravenous contrast. Automate d exposure control and iterative reconstruction technique were employed. Exam dose: 169.98 mGy-cm to leopoldo exam DLP. COMPARISON: 10/20/2023 portable AP chest 11/10/2022 CT lung screening FINDINGS: No pulmonary mass, infiltrate or consolidation. Aberrant right subclavian artery, anatomic variant. Normal heart size. No thoracic aortic aneurysm. No pericardial or pleural effusion. No hilar or mediastinal mass lesion or lymphadenopathy. Normal morphology of the adrenal glands. Pinpoint nonobstructing upper pole left renal calculus. Included skeletal structures are unremarkable. IMPRESSION: Lung-RADS 1: Negative Recommendation: [address] lung screening follow-up Reviewed, dictated and finalized at [facility]. Reviewed, dictated and finalized at [facility].
== END 2024-02-15 12:51 ==
LOC: MICIMG 12:51
PROVIDERS: PCP Emergency Medicine; Visit Provider Emergency Medicine
DX: Z12.2 Encounter for screening for malignant neoplasm of respiratory organs (principal); Z87.891 Personal history of nicotine dependence
CPT/HCPCS: 71271

== ENCOUNTER 2024-10-11 07:24 | Outpatient (RCR) | payer MEDICARE, OTHER, SELFPAY ==
[2024-10-04 10:43] VITALS: BMI 27.4
== END 2024-11-29 13:55 | disposition home or self-care (01) ==
LOC: ANHWOC 07:24
PROVIDERS: PCP Family Medicine; Visit Provider Nurse Practitioner Family
DX: S81.802A Unspecified open wound, left lower leg, initial encounter (principal)
CPT/HCPCS: 99212; 99214; A9270; G0463